=== PATIENT | male | born 1975 | race Caucasian/White ===

== ENCOUNTER 2019-09-28 10:33 | Inpatient (IN) | payer BC, OTHER, SELFPAY ==
[~2019-09-28] VITALS: Ht 167.6 cm; Wt 79.5 kg
[~2019-09-28 10:33] MED LIST: DEPA250T2 PO; INVE117I IM; INVE156I IM; INVE6TAB3 PO; KLON0.5T PO
[2019-09-28] MEDS ORDERED: LITH45TASA PO (10:44)
[2019-09-28] MEDS ORDERED: METO1TAB7 PO (10:44)
[2019-09-28] MEDS ORDERED: amLODIPine 10 MG TAB PO ONE (11:15)
[2019-09-28] MEDS ORDERED: METOPROLOL SUCC (TopROL XL) 50MG **XL** TAB PO ONE (11:15)
[2019-09-28 11:38] LABS: AMPHETAMINES LEVEL URINE NEGATIVE (NEGATIVE); BARBITURATES URINE NEGATIVE (NEGATIVE); BENZODIAZEPINES URINE NEGATIVE (NEGATIVE); CANNABINOIDS URINE NEGATIVE (NEGATIVE); COCAINE METABOLITE URINE NEGATIVE (NEGATIVE); METHADONE URINE NEGATIVE (NEGATIVE); OPIATES URINE NEGATIVE (NEGATIVE); PHENCYCLIDINE URINE NEGATIVE (NEGATIVE)
[2019-09-28 11:51] LABS: ALBUMIN 3.9 GM/DL (3.2-5.2); ALT/SGPT 112 U/L (12-78); BILIRUBIN,DIRECT 0.1 MG/DL (0.0-0.2); BILIRUBIN,TOTAL 0.5 MG/DL (0.2-1.0); BLOOD UREA NITROGEN 6 MG/DL (7-18); CALCIUM LEVEL 8.9 MG/DL (8.5-10.1); CARBON DIOXIDE LEVEL 19 MEQ/L (21-32); CHLORIDE LEVEL 107 MEQ/L (98-107); CREATININE FOR GFR 0.99 MG/DL (0.70-1.30); GLOMERULAR FILTRATION RATE > 60.0 (>60); GLUCOSE, FASTING 132 MG/DL (70-100); POTASSIUM SERUM 3.6 MEQ/L (3.5-5.1); SALICYLATE LEVEL < 1.7 MG/DL (5.0-30.0); SODIUM LEVEL 138 MEQ/L (136-145); TOTAL PROTEIN 7.3 GM/DL (6.4-8.2); VALPROIC ACID (DEPAKOTE) < 3.0 UG/ML (50.0-100.0)
[2019-09-28 11:52] LABS: ACETAMINOPHEN LEVEL < 2.0 UG/ML (10.0-30.0)
[2019-09-28 12:00] LABS: HEMOGLOBIN 15.4 g/dl (13.5-17.5); MEAN CORPUSCULAR HEMOGLOBIN 33.6 pg (27.0-33.0); MEAN CORPUSCULAR VOLUME 96.1 fl (80.0-96.0); PLATELET COUNT, AUTOMATED 264 10^3/uL (150-450); RED BLOOD COUNT 4.58 10^6/uL (4.30-6.10); WHITE BLOOD COUNT 11.2 10^3/uL (4.0-10.0)
[2019-09-28] MEDS: LITHIUM CARBONATE 450 MG **CR** TAB PO SCH (21:00)
[2019-09-28] MEDS: ZIPRASIDONE 20MG CAPSULE (GEODON) PO SCH (21:00)
[2019-09-28] MEDS: THIAMINE 100 MG TAB PO SCH (21:00)
[2019-09-28] MEDS ORDERED: ACET500T15 PO (22:36)
[2019-09-28] MEDS ORDERED: ASPI1TAB22 PO (22:36)
[2019-09-28] MEDS ORDERED: AMLO10TA5 PO (22:36)
[2019-09-28] MEDS ORDERED: ZIPR40CA11 PO (22:36)
[2019-09-28] MEDS ORDERED: ACETAMINOPHEN 500 MG TAB PO ONE (22:45)
[2019-09-28] MEDS ORDERED: LORazepam 2 MG TAB PO PRN (23:00)
[2019-09-28] MEDS ORDERED: MOM 30ML SUSPENSION UDC PO PRN (23:00)
[2019-09-28] MEDS ORDERED: MAALOX 30 ML SUSP *UDC PO PRN (23:00)
[2019-09-28] MEDS ORDERED: ACETAMINOPHEN TAB 650MG DOSE (2X325MG) PO PRN (23:00)
[2019-09-28] MEDS ORDERED: OLANZapine ORAL DISINTEGRATING TAB 5MG PO PRN (23:00)
[2019-09-29 00:06] VITALS: BP 156/106
[2019-09-29 00:07] VITALS: BP 156/106
[2019-09-29 06:14] VITALS: BP 138/96
[2019-09-29 06:58] VITALS: BP 138/96
[2019-09-29] MEDS: FOLIC ACID 1 MG TAB PO SCH (09:08)
[2019-09-29] MEDS: MULTIVITAMINS/MINERALS THERAP 1 TAB PO SCH (09:08)
[2019-09-29] MEDS: THIAMINE 100 MG TAB PO SCH ×2 (09:08→20:09)
[2019-09-29] MEDS: METOPROLOL SUCC (TopROL XL) 50MG **XL** TAB PO SCH (09:08)
[2019-09-29] MEDS: amLODIPine 10 MG TAB PO SCH (09:09)
[2019-09-29] MEDS: ZIPRASIDONE 20MG CAPSULE (GEODON) PO SCH ×2 (09:09→20:09)
[2019-09-29] MEDS: LITHIUM CARBONATE 450 MG **CR** TAB PO SCH ×2 (09:09→20:09)
--- NOTE | 2019-09-29 09:15 | MHHPEPDOC ---
[facility] History & Physical History and Physical DATE OF ADMISSION: September 28, 2019 at 22:54 New Patient Benji Enriquez MRN: N/A Date of : N/A Date of Service: 09/29/2019 Chief Complaint "I started drinking" History of Present Illness The patient is a 44-year-old man with a history of bipolar presents after becoming extraordinarily drunk with a blood alcohol of 0.3. The patient had reported become quite intoxicated making suicidal or homicidal statements. He reports having history of bipolar disorder and had some impulsivity he had noticed prior to him trying to drink. He reported that he had stopped drinking for quite some time roughly 3 weeks and had relapse in alcohol prior to coming in. When he was met with, reported that he was having withdrawal symptoms but was feeling better mentally and was not feeling suicidal or homicidal. He was last admitted in 2016 and reports that he had been admitted only once in the interim. Review Of Systems Depression: The patient denies any episodes of unprovoked depressed mood outside of substance use Anxiety: No significant anxiety endorsed Brandi: Qualifies for manic episodes in the past outside of substance use. Psychotic: The patient denies any experiences of auditory or visual hallucinations at this time. Trauma: None reported at this time Borderline: Not screened due to age Past Psychiatric History Has history of bipolar disorder currently treated with a combination of Ziprasidone and Geodon for the last several years. He was last admitted in the interim several years ago denies any history of suicide attempts. Allergies Please see below. Family Psychiatric History Reports a family history of mental health problems including bipolar alcoholism and a number of others but no history of suicide. Social History The patient currently lives with girlfriend and reports some difficulties second ramiro to it. He graduated with a GED. He reports no significant legal troubles at this time. Denies history of trauma or abuse. Grew up in the local area. Substance Abuse History Has a history of excessive alcohol use. Been sober for 3 months. Has rehabed stints in the past. Denies any other use of substances in the current interim. Medical History Has a history of hypertensive disorder Mental Status Examination General: Well dressed with good hygiene Speech: Spontaneous and fluid Thought processes: Linear and logical MSK: Smooth and coordinated gait, no signs of tremors or involuntary orofacial movements Thought content: Future orientated Abstract reasoning, and computation: Intact Description of associations: Intact Description of abnormal or psychotic thoughts: Denies any suicidal or homicidal ideation. Denies any auditory or visual hallucinations. Does not appear to be responding to internal stimuli. Does not appear to be endorsing any bizarre or paranoid ideation. Judgment: fair Insight: fair Orientation: Alert and orientated 3 Cognition: Grossly normal Recent and remote memory: Intact Attention span and concentration: Intact Fund of knowledge: Adequate Mood: "okay" Affect: Euthymic with a full range Diagnoses Bipolar disorder, last episode depressed, in remission of unspecified degree Alcohol use disorder, severe Assessment and Plan Bipolar disorder: Continue patients ziprasidone and lithium Alcohol use disorder, CIWA will likely arrange for addiction and potentially na ltrexone Disposition The patient will need further assessment and interview as well as monitoring to determine that it is alcohol that is salient play rather than bipolar disorder as he does have confirmed bipolar disorder Problem List 1. Risk for suicide 2. Substance use Initial Treatment Plan 1. Patient was admitted on a 9.39 legal status. 2. Complete history was obtained. 3. With patients permission, family will be contacted and database will be expanded. 4. Patients medication regimen will be reviewed and changed accordingly. 5. Patient will be provided with protected environment. 6. Patient will be treated with individual, group, and milieu therapies. 7. Patient will receive supportive psych-education. 8. Discharge planning will commence immediately. 9. Outpatient follow-up treatment will be strongly recommended. 10. The initial treatment plan will focus initially on: Estimated Length Of Stay 3 days. Time Spent 70 minutes with greater than 50% of time spent on counseling/coordination of care Friday Vital Signs Vital Signs Date Time Temp Pulse Resp B/P (MAP) Pulse Ox O2 Delivery O2 Flow Rate FiO2 09/29/19 09:09 88 138/96 09/29/19 06:58 98.8 12 Room Air 09/29/19 00:06 97 Laboratory Data 24H Labs Laboratory Tests 2 09/28/19 10:50: Nucleated Red Blood Cells % (auto) 0.0, Anion Gap 12, Glomerular Filtration Rate > 60.0, Calcium Level 8.9, Total Bilirubin 0.5, Direct Bilirubin 0.1, Aspartate Amino Transf (AST/SGOT) 67H, Alanine Aminotransferase (ALT/SGPT) 112H, Alkaline Phosphatase 77, Total Protein 7.3, Albumin 3.9, Albumin/Globulin Ratio 1.15, Thyroid Stimulating Hormone (TSH) 1.210, Salicylates Level < 1.7L, Urine Opiates Screen NEGATIVE, Urine Methadone Screen NEGATIVE, Acetaminophen Level < 2.0L, Urine Barbiturates Screen NEGATIVE, Valproic Acid (Depakene) Level < 3.0L, Urine Phencyclidine Screen NEGATIVE, Urine Amphetamines Screen NEGATIVE, Urine Benzodiazepines Screen NEGATIVE, [place] Level 0.60, Urine Cocaine Metabolite Screen NEGATIVE, Urine Cannabinoids Screen NEGATIVE, Ethyl Alcohol Level 0.300H CBC/BMP Laboratory Tests 09/28/19 10:50 Medications Scheduled Amlodipine Besylate (Amlodipine Besylate) 10 Mg Tablet, 10 MG PO DAILY, (Reported) [place] Carbonate ([place] Carbonate ER) 450 Mg Tablet.er, 450 MG PO BID, (Reported) Metoprolol Succinate (Metoprolol Succinate) 50 Mg Tab.er.24h, 50 MG PO DAILY, (Reported) Ziprasidone HCl (Ziprasidone HCl) 40 Mg Capsule, 40 MG PO BID, (Reported) Scheduled PRN Acetaminophen (Acetaminophen) 500 Mg Tablet, 500 MG PO Q6H PRN for PAIN, (Reported) Aspirin (Aspirin) 325 Mg Tablet, 325 MG PO Q6H PRN for PAIN, (Reported) Allergies Coded Allergies: No Known Allergies (Unverified , 07/12/15) JORGE HOLDEN DO September 29, 2019 09:15
[2019-09-29 15:52] VITALS: BP 149/95
--- NOTE | 2019-09-29 17:12 | HPEPDOC ---
[facility] Medical History & Physical Date of Admission September 29, 2019 Date of Service: September 29, 2019 History and Physical CHIEF COMPLAINT: Admitted to inpatient mental health unit due to alcohol overdose and aggressive behavior HISTORY OF PRESENT ILLNESS: 44-year-old male with past medical history of alcohol abuse, schizophrenia and hypertension is admitted to inpatient mental health unit after drinking too much vodka and threatening his neighbor. The police brought him in, he feels well since then, without any complaints at this time. He denies any symptoms of alcohol withdrawal this time. Patient reports compliance with his outpatient medication. He denies any shortness of breath, chest pain, nausea, vomiting, abdominal pain, diarrhea or constipation at this time. 10 point review of system is negative except for above PAST MEDICAL HISTORY: 1. Alcohol abuse. 2. Schizophrenia. 3. Hypertension. PAST SURGICAL HISTORY: 1. None. SOCIAL HISTORY: Denies smoking cigarettes Smokes excessive alcohol. Denies drug use FAMILY HISTORY: Negative for heart disease or cancer ALLERGIES: Please see below. HOME MEDICATIONS: Please see below. PHYSICAL EXAMINATION: VITAL SIGNS: Please see below. GENERAL: No distress HEENT: Normocephalic, atraumatic, moist mucous membranes NECK: Supple CARDIOVASCULAR EXAMINATION: S1, S2, no murmurs RESPIRATORY EXAMINATION: Clear to auscultation, no wheezing ABDOMINAL EXAMINATION: Soft, nontender, nondistended, positive bowel sounds EXTREMITIES: Range of motion intact SKIN: No rash NEUROLOGICAL EXAMINATION: Alert and oriented 3, no focal deficits PSYCHIATRIC EXAMINATION: Calm and cooperative LABORATORY DATA: See below. MICROBIOLOGY: Please see below. ASSESSMENT: 44-year-old male with past medical history of schizophrenia, alcohol abuse and hypertension is admitted to inpatient mental health unit for alcohol intoxication and aggressive behavior. PLAN: 1. Schizophrenia/aggressive behavior/alcohol intoxication. Management as per primary team, no signs of alcohol withdrawal at this time, alcohol level severely elevated at the time of presentation, monitor for withdrawal symptoms over the next 24-72 hours and treat accordingly. 2. Hypertension. Continue metoprolol and Norvasc Vital Signs Vital Signs Date Time Temp Pulse Resp B/P (MAP) Pulse Ox O2 Delivery O2 Flow Rate FiO2 09/29/19 15:52 98.0 80 18 149/95 (113) 09/29/19 06:58 Room Air 09/29/19 00:06 97 Home Medications Scheduled Amlodipine Besylate (Amlodipine Besylate) 10 Mg Tablet, 10 MG PO DAILY [place] Carbonate ([place] Carbonate ER) 450 Mg Tablet.er, 450 MG PO BID Metoprolol Succinate (Metoprolol Succinate) 50 Mg Tab.er.24h, 50 MG PO DAILY Ziprasidone HCl (Ziprasidone HCl) 40 Mg Capsule, 40 MG PO BID Scheduled PRN Acetaminophen (Acetaminophen) 500 Mg Tablet, 500 MG PO Q6H PRN for PAIN Aspirin (Aspirin) 325 Mg Tablet, 325 MG PO Q6H PRN for PAIN Allergies Coded Allergies: No Known Allergies (Unverified , 07/12/15) A-FIB/CHADSVASC A-FIB History Current/History of A-Fib/PAF?: No JEM MATHEW MD September 29, 2019 17:12
[2019-09-29] MEDS: traZODone 50 MG TAB PO PRN (20:09)
[2019-09-29 21:22] VITALS: BP 159/91
[2019-09-30 06:17] VITALS: BP 149/90
[2019-09-30] MEDS: MULTIVITAMINS/MINERALS THERAP 1 TAB PO SCH (08:49)
[2019-09-30] MEDS: LITHIUM CARBONATE 450 MG **CR** TAB PO SCH ×2 (08:49→20:06)
[2019-09-30] MEDS: ZIPRASIDONE 20MG CAPSULE (GEODON) PO SCH ×2 (08:49→20:06)
[2019-09-30] MEDS: FOLIC ACID 1 MG TAB PO SCH (08:49)
[2019-09-30] MEDS: METOPROLOL SUCC (TopROL XL) 50MG **XL** TAB PO SCH (08:49)
[2019-09-30] MEDS: THIAMINE 100 MG TAB PO SCH ×2 (08:49→20:06)
[2019-09-30] MEDS: amLODIPine 10 MG TAB PO SCH (08:49)
--- NOTE | 2019-09-30 09:34 | MHIPNPDOC ---
[facility] Progress Note Progress Note Inpatient Progress Note Benji Enriquez MRN: N/A Date of : N/A Date of Service: 09/30/2019 History of Present Illness The patient is a 44-year-old man with a history of bipolar presents after becoming extraordinarily drunk with a blood alcohol of 0.3. The patient had reported become quite intoxicated making suicidal or homicidal statements. He reports having history of bipolar disorder and had some impulsivity he had noticed prior to him trying to drink. He reported that he had stopped drinking for quite some time roughly 3 weeks and had relapse in alcohol prior to coming in. When he was met with, reported that he was having withdrawal symptoms but was feeling better mentally and was not feeling suicidal or homicidal. He was last admitted in 2016 and reports that he had been admitted only once in the interim. Interval History The patient is seen today. He reports he is doing much better and he feels much improved, and his CIWA scores have consistently been roughly 1-2. He reports he is feeling much improved and is interested in going. He has had no behavioral problems overnight and has been compliant with treatment from staff. Review Of Systems General: Denies fever or appetite changes Cardiovascular: Denies Chest pain or palpations GI: Denies Nausea, vomiting, or bowel changes Respiratory: Denies shortness of breath or cough Neuro: Denies dizziness, tremors Derm: Denies any rashes or pruritus : Denies any dysuria or urinary problems MSK: Denies any muscle tightness or stiffness HEENT: Denies any vision changes or headaches Psychotherapy None on this visit. Vital Signs Reviewed. Mental Status Examination General: Well dressed with good hygiene Speech: Spontaneous and fluid Thought processes: Linear and logical MSK: Smooth and coordinated gait, no signs of tremors or involuntary orofacial movements Thought content: Future orientated Abstract reasoning, and computation: Intact Description of associations: Intact Description of abnormal or psychotic thoughts: Denies any suicidal or homicidal ideation. Denies any auditory or visual hallucinations. Does not appear to be responding to internal stimuli. Does not appear to be endorsing any bizarre or paranoid ideation. Judgment: fair Insight: fair Orientation: Alert and orientated 3 Cognition: Grossly normal Recent and remote memory: Intact Attention span and concentration: Intact Fund of knowledge: Adequate Mood: "okay" Affect: Euthymic with a full range Diagnoses Bipolar disorder, last episode depressed, in remission of unspecified degree Alcohol use disorder, severe Assessment and Plan Bipolar disorder: Continue patients ziprasidone and lithium Alcohol use disorder, CIWA will likely arrange for addiction and potentially naltrexone Disposition Discharge tomorrow if patient continues to be stable for triage into addiction ideally. Time Spent 15 minutes. Vital Signs Vital Signs Date Time Temp Pulse Resp B/P (MAP) Pulse Ox O2 Delivery O2 Flow Rate FiO2 09/30/19 06:17 98.0 87 14 149/90 (109) Room Air 09/29/19 00:06 97 Current Medications Current Medications Medications (Trade) Dose Ordered Sig/Tony Route PRN Reason Start Time Stop Time Status Last Admin Dose Admin Acetaminophen (Tylenol Tab) 650 mg Q6HP PRN PO HEADACHE or DISCOMFORT 09/28/19 23:00 Al Hydrox/Mg Hydrox/Simethicone (Mylanta) 30 ml Q4HP PRN PO HEARTBURN/INDIGESTION 09/28/19 23:00 Amlodipine Besylate (Norvasc) 10 mg DAILY PO 09/29/19 09:00 09/30/19 08:49 Folic Acid (Folic Acid) 1 mg DAILY PO 09/29/19 09:00 09/30/19 08:49 Home Med (Med Rec Complete!) ASDIRECTED XX 09/28/19 22:45 09/28/19 22:38 DC [place] Carbonate (Eskalith-Cr) 450 mg BID PO 09/28/19 21:00 09/30/19 08:49 Lorazepam (Ativan) 2 mg ASDIRECTED PRN PO SEE PROTOCOL 09/28/19 23:00 Magnesium Hydroxide (Milk Of Magnesia) 30 ml DAILYPRN PRN PO CONSTIPATION 09/28/19 23:00 Metoprolol Succinate (TopROL XL) 50 mg DAILY PO 09/29/19 09:00 09/30/19 08:49 Multivitamins (Theragram-M) 1 tab DAILY PO 09/29/19 09:00 09/30/19 08:49 Olanzapine (ZyPREXA ZYDIS) 5 mg Q4HP PRN PO AGITATION 09/28/19 23:00 Thiamine HCl (Thiamine HCl) 100 mg BID PO 09/28/19 21:00 10/01/19 09:01 09/30/19 08:49 Trazodone HCl (Desyrel) 50 mg QHSP PRN PO INSOMNIA 09/28/19 23:00 09/29/19 20:09 Ziprasidone (Geodon) 40 mg BID PO 09/28/19 21:00 09/30/19 08:49 Allergies Coded Allergies: No Known Allergies (Unverified , 07/12/15) JORGE HOLDEN DO September 30, 2019 09:34
--- NOTE | 2019-09-30 09:34 | MHDSPDOC ---
[facility] Discharge Summary Discharge Summary DATE OF ADMISSION: September 28, 2019 at 22:54 DATE OF DISCHARGE: DISCHARGE DIAGNOSES: 1. . 2. . REASON FOR ADMISSION: CONSULTANTS INVOLVED: TREATMENT AND PROGRESS ON THE UNIT : . HOSPITAL COURSE: DISCHARGE ASSESSMENT: MENTAL STATUS EXAMINATION ON DISCHARGE: Patient is a -year old male, who is . Speech is . Language skills are . Thought processes including: . Thought content: . Abstract reasoning, and computation: . Description of associations: . Description of abnormal or psychotic thoughts: . Judgment: . Insight: . Orientation to . Recent and remote memory: . Attention span and concentration: . Language: . Fund of knowledge: . Mood: . Affect: . MEDICATIONS ON DISCHARGE: - for . - for . - for . PLAN/FOLLOWUP ARRANGEMENTS: . The amount of time spent in the coordination of care for this patient was approximately minutes. Vital Signs/I&Os Vital Signs Date Time Temp Pulse Resp B/P (MAP) Pulse Ox O2 Delivery O2 Flow Rate FiO2 09/30/19 06:17 98.0 87 14 149/90 (109) Room Air 09/29/19 00:06 97 Medications Scheduled Amlodipine Besylate (Amlodipine Besylate) 10 Mg Tablet, 10 MG PO DAILY, (Reported) [place] Carbonate ([place] Carbonate ER) 450 Mg Tablet.er, 450 MG PO BID, (Reported) Metoprolol Succinate (Metoprolol Succinate) 50 Mg Tab.er.24h, 50 MG PO DAILY, (Reported) Ziprasidone HCl (Ziprasidone HCl) 40 Mg Capsule, 40 MG PO BID, (Reported) Scheduled PRN Acetaminophen (Acetaminophen) 500 Mg Tablet, 500 MG PO Q6H PRN for PAIN, (Reported) Aspirin (Aspirin) 325 Mg Tablet, 325 MG PO Q6H PRN for PAIN, (Reported) Allergies Coded Allergies: No Known Allergies (Unverified , 07/12/15) JORGE HOLDEN DO September 30, 2019 09:34
[2019-09-30 11:59] VITALS: BP 149/90
[2019-09-30 15:45] VITALS: BP 137/83
[2019-09-30 16:07] VITALS: BP 156/91
[2019-09-30] MEDS: traZODone 50 MG TAB PO PRN (20:06)
[2019-10-01 06:09] VITALS: BP 135/80
[2019-10-01 06:10] VITALS: BP 135/80
[2019-10-01 08:17] VITALS: BP 124/77
[2019-10-01] MEDS: LITHIUM CARBONATE 450 MG **CR** TAB PO SCH (08:17)
[2019-10-01] MEDS: METOPROLOL SUCC (TopROL XL) 50MG **XL** TAB PO SCH (08:17)
[2019-10-01] MEDS: FOLIC ACID 1 MG TAB PO SCH (08:17)
[2019-10-01] MEDS: THIAMINE 100 MG TAB PO SCH (08:17)
[2019-10-01] MEDS: ZIPRASIDONE 20MG CAPSULE (GEODON) PO SCH (08:17)
[2019-10-01] MEDS: amLODIPine 10 MG TAB PO SCH (08:17)
[2019-10-01] MEDS: MULTIVITAMINS/MINERALS THERAP 1 TAB PO SCH (08:17)
--- NOTE | 2019-10-01 09:58 | MHDSPDOC ---
[facility] Discharge Summary Discharge Summary DATE OF ADMISSION: September 28, 2019 at 22:54 DATE OF DISCHARGE: 10/01/19 Discharge Benji Enriquez MRN: N/A Date of : N/A Date of Service: 10/01/2019 Diagnoses Bipolar disorder, last episode depressed, in remission of unspecified degree, Alcohol use disorder, severe. History of Present Illness The patient is a 44-year-old man with a history of bipolar presents after becoming extraordinarily drunk with a blood alcohol of 0.3. The patient had reported become quite intoxicated making suicidal or homicidal statements. He reports having history of bipolar disorder and had some impulsivity he had noticed prior to him trying to drink. He reported that he had stopped drinking for quite some time roughly 3 weeks and had relapse in alcohol prior to coming in. When he was met with, reported that he was having withdrawal symptoms but was feeling better mentally and was not feeling suicidal or homicidal. He was last admitted in 2016 and reports that he had been admitted only once in the interim. Consultants Involved Hospitalist/PCP screening Treatment and Progress On The Unit The patient was admitted to the inpatient mental health unit. He was treated with [facility] for his alcohol withdrawal, for which he required very few doses of Ativan. He was resumed on his home medications of ziprasidone and lithium with the lithium level in the normal range. He was observed and he appeared to resolve well without any major changes suggesting a substance-induced problem. He did well on the unit and had good insight and was cooperative for treatment. Eventually, he requested to leave and had not been suicidal or homicidal or having any behavioral problems and his request was honored. Discharge Assessment 44-year-old man with history of bipolar disorder likely presenting after becoming severely intoxicated. He is treated with his home medications and a supportive environment. The patient at the time of discharge did not meet criteria for involuntary admission/extension due to having a normal mental status exam, fair insight into the situation, They are engaged in the discharge process, as well as being friendly and amenable in behavioral control and havent been engaging in any observed concerning behavior or ideation recently. They decline voluntary extension/admission at this time and must be discharged in good ron, as Im unable to make a case for holding the patient against their will. They may have historical risk factors of admissions and other interactions with psychiatry however, those are not modifiable from a clinical perspective. The patient will need to be discharged in good ron. Mental Status Examination General: Well dressed with good hygiene Speech: Spontaneous and fluid Thought processes: Linear and logical MSK: Smooth and coordinated gait, no signs of tremors or involuntary orofacial movements Thought content: Future orientated Abstract reasoning, and computation: Intact Description of associations: Intact Description of abnormal or psychotic thoughts: Denies any suicidal or homicidal ideation. Denies any auditory or visual hallucinations. Does not appear to be responding to internal stimuli. Does not appear to be endorsing any bizarre or paranoid ideation. Judgment: fair Insight: fair Orientation: Alert and orientated 3 Cognition: Grossly normal Recent and remote memory: Intact Attention span and concentration: Intact Fund of knowledge: Adequate Mood: "okay" Affect: Euthymic with a full range Follow Up The social work team worked during the predischarge meeting in order to evaluate for further issues of lethality address them fully before discharge. They worked on safety planning with the patient's family members in order to ensure that the patient will have a safe and effective discharge. Time Spent The amount of time spent in the coordination of care for this patient was approximately 45 minutes. Friday Vital Signs/I&Os Vital Signs Date Time Temp Pulse Resp B/P (MAP) Pulse Ox O2 Delivery O2 Flow Rate FiO2 10/01/19 08:17 75 10/01/19 08:17 124/77 10/01/19 06:10 98.4 14 99 Room Air Medications Scheduled Amlodipine Besylate (Amlodipine Besylate) 10 Mg Tablet, 10 MG PO DAILY, (Re ported) [place] Carbonate ([place] Carbonate ER) 450 Mg Tablet.er, 450 MG PO BID, (Reported) Metoprolol Succinate (Metoprolol Succinate) 50 Mg Tab.er.24h, 50 MG PO DAILY, (Reported) Nicotine Polacrilex (Nicotine Gum) 2 Mg Gum, 2 MG MT Q2H for tobacco for 30 Days, #30 Ziprasidone HCl (Ziprasidone HCl) 40 Mg Capsule, 40 MG PO BID, (Reported) Scheduled PRN Acetaminophen (Acetaminophen) 500 Mg Tablet, 500 MG PO Q6H PRN for PAIN, (Reported) Aspirin (Aspirin) 325 Mg Tablet, 325 MG PO Q6H PRN for PAIN, (Reported) Allergies Coded Allergies: No Known Allergies (Unverified , 07/12/15) JORGE HOLDEN DO October 01, 2019 09:58
[2019-10-01] MEDS ORDERED: NICO2GUM MT (10:06)
== END 2019-10-01 12:00 | disposition home or self-care (01) | DRG 753 ==
LOC: M ED 10:33 → M ED INP 22:54 → M PSY 23:25
PROVIDERS: ADMIT Psychiatry & Neurology Addiction Medicine; ATTEND Psychiatry & Neurology Addiction Medicine
DX: F31.9 Bipolar disorder, unspecified (principal); I10 Essential (primary) hypertension; F10.10 Alcohol abuse, uncomplicated; Z79.899 Other long term (current) drug therapy; Z79.82 Long term (current) use of aspirin

== ENCOUNTER 2019-12-29 22:28 | Inpatient (IN) | payer OTHER ==
[~2019-12-29 22:28] MED LIST changes: +ACET500T15 PO; +AMLO1TAB25 PO; +ASPI1TAB22 PO; +LITH45TASA PO; +METO1TAB7 PO; +NICO2GUM MT; +ZIPR40CA11 PO
[2019-12-30] MEDS ORDERED: ZIPRASIDONE 20MG CAPSULE (GEODON) ONE ×2 (11:29→20:20)
[2019-12-30] MEDS ORDERED: ZIPRASIDONE 20MG CAPSULE (GEODON) As Ordered ONE (11:29)
[2019-12-30] MEDS ORDERED: amLODIPine 10 MG TAB ONE (11:29)
[2019-12-30] MEDS ORDERED: amLODIPine 10 MG TAB As Ordered ONE (11:29)
[2019-12-30] MEDS ORDERED: LITHIUM CARBONATE 450 MG **CR** TAB ONE ×2 (20:20→23:30)
[2019-12-30] MEDS ORDERED: traZODone 50 MG TAB ONE (20:20)
[2019-12-30] MEDS ORDERED: METOPROLOL SUCC (TopROL XL) 50MG **XL** TAB ONE (23:30)
[2019-12-31] MEDS ORDERED: METOPROLOL SUCC (TopROL XL) 50MG **XL** TAB ONE (13:00)
[2019-12-31] MEDS ORDERED: ZIPRASIDONE 20MG CAPSULE (GEODON) As Ordered ONE (20:02)
[2019-12-31] MEDS ORDERED: traZODone 50 MG TAB ONE (20:02)
[2019-12-31] MEDS ORDERED: ZIPRASIDONE 20MG CAPSULE (GEODON) ONE (20:02)
[2019-12-31] MEDS ORDERED: traZODone 50 MG TAB As Ordered ONE (20:02)
[2020-01-01] MEDS ORDERED: LITHIUM CARBONATE 450 MG **CR** TAB ONE (07:45)
[2020-01-01] MEDS ORDERED: amLODIPine 10 MG TAB ONE (07:45)
[2020-01-01] MEDS ORDERED: amLODIPine 10 MG TAB As Ordered ONE (07:45)
[2020-01-01] MEDS ORDERED: LITHIUM CARBONATE 450 MG **CR** TAB As Ordered ONE (07:45)
[2020-01-01] MEDS ORDERED: ZIPRASIDONE 20MG CAPSULE (GEODON) ONE ×2 (07:45→20:14)
[2020-01-01] MEDS ORDERED: METOPROLOL TART 25 MG TABLET As Ordered ONE (07:46)
[2020-01-01] MEDS ORDERED: ZIPRASIDONE 20MG CAPSULE (GEODON) As Ordered ONE ×2 (07:46→20:14)
[2020-01-01] MEDS ORDERED: traZODone 50 MG TAB ONE (20:14)
[2020-01-01] MEDS ORDERED: traZODone 50 MG TAB As Ordered ONE (20:14)
[2020-01-02] MEDS ORDERED: ZIPRASIDONE 20MG CAPSULE (GEODON) ONE ×2 (07:30→20:08)
[2020-01-02] MEDS ORDERED: amLODIPine 10 MG TAB As Ordered ONE (07:30)
[2020-01-02] MEDS ORDERED: LITHIUM CARBONATE 450 MG **CR** TAB ONE (07:30)
[2020-01-02] MEDS ORDERED: amLODIPine 10 MG TAB ONE (07:30)
[2020-01-02] MEDS ORDERED: ZIPRASIDONE 20MG CAPSULE (GEODON) As Ordered ONE (07:31)
[2020-01-02] MEDS ORDERED: LITHIUM CARBONATE 450 MG **CR** TAB As Ordered ONE (07:31)
[2020-01-02] MEDS ORDERED: ACETAMINOPHEN TAB 650MG DOSE (2X325MG) ONE (20:08)
[2020-01-02] MEDS ORDERED: traZODone 50 MG TAB ONE (20:08)
[2020-01-03] MEDS ORDERED: METOPROLOL TART 25 MG TABLET ONE (09:47)
[2020-01-03] MEDS ORDERED: ZIPRASIDONE 20MG CAPSULE (GEODON) ONE (09:47)
[2020-01-03] MEDS ORDERED: amLODIPine 10 MG TAB ONE (09:47)
[2020-01-03] MEDS ORDERED: amLODIPine 10 MG TAB As Ordered ONE (09:47)
[2020-01-03] MEDS ORDERED: LITHIUM CARBONATE 150 MG CAP ONE (09:47)
[2020-01-03] MEDS ORDERED: ZIPRASIDONE 20MG CAPSULE (GEODON) As Ordered ONE (09:48)
[2020-01-03] MEDS ORDERED: LITHIUM CARBONATE 150 MG CAP As Ordered ONE (09:48)
[2020-01-03] MEDS ORDERED: METOPROLOL TART 25 MG TABLET As Ordered ONE (09:48)
[2020-02-17 03:34] LABS: HEMATOCRIT 43.6 % (42.0-52.0); HEMOGLOBIN 15.5 g/dl (13.5-17.5); MEAN CORPUSCULAR HEMOGLOBIN 33.2 pg (27.0-33.0); MEAN CORPUSCULAR HGB CONC 35.6 g/dl (32.0-36.5); MEAN CORPUSCULAR VOLUME 93.4 fl (80.0-96.0); PLATELET COUNT, AUTOMATED 237 10^3/uL (150-450); RED BLOOD COUNT 4.67 10^6/uL (4.30-6.10); WHITE BLOOD COUNT 8.4 10^3/uL (4.0-10.0)
[2020-03-20 17:32] LABS: ACETAMINOPHEN LEVEL < 2.0 UG/ML (10.0-30.0); ALBUMIN 4.2 GM/DL (3.2-5.2); ALT/SGPT 24 U/L (12-78); BILIRUBIN,DIRECT 0.1 MG/DL (0.0-0.2); BILIRUBIN,TOTAL 0.5 MG/DL (0.2-1.0); BLOOD UREA NITROGEN 5 MG/DL (7-18); CALCIUM LEVEL 8.9 MG/DL (8.5-10.1); CARBON DIOXIDE LEVEL 24 MEQ/L (21-32); CHLORIDE LEVEL 107 MEQ/L (98-107); ETHYL ALCOHOL (ETHANOL) 0.213 % (0.000-0.010); GLOMERULAR FILTRATION RATE > 60.0 (>60); GLUCOSE, FASTING 90 MG/DL (70-100); LITHIUM LEVEL < 0.20 MEQ/L (0.60-1.20); POTASSIUM SERUM 3.5 MEQ/L (3.5-5.1); SALICYLATE LEVEL < 1.7 MG/DL (5.0-30.0); SODIUM LEVEL 140 MEQ/L (136-145); TOTAL PROTEIN 7.4 GM/DL (6.4-8.2)
--- NOTE | 2020-03-23 20:56 | MHDSPDOC ---
[facility] Discharge Summary Discharge Summary DATE OF ADMISSION: Dec 31, 2019 at 00:00 DATE OF DISCHARGE: Jan 03, 2020 at 11:54 DISCHARGE DIAGNOSES: F10.94 Alcohol use, unspecified with alcohol-induced mood disorder F31.70 Bipolar disorder, currently in remission, most recent episode unspecified CONSULTANTS INVOLVED:[ None (basic hospitalist screening)] REASON FOR ADMISSION & TREATMENT AND PROGRESS ON THE UNIT : The patient was admitted to the inpatient health unit after becoming quite intoxicated, his mother had had a restraining order on him and thus he could not return. He stabilized quite well without any major issues and did not have any signs of bipolar linden or other bipolar depression but simply substance-induced depression that resolved well. He returned to a fairly amenable state quite quickly. He was treated with alcohol withdrawal protocol without incident. His behavior was stable and pleasant during his stay. DISCHARGE ASSESSMENT[improved] Legal status considerations: The patient at the time of discharge did not meet criteria for involuntary admission/extension due to having a [normal] mental status exam, [fair] insight into the situation, They are engaged in the discharge process, as well as being friendly and amenable in behavioral control and havent been engaging in any observed concerning behavior or ideation recently. They decline voluntary extension/admission at this time and must be discharged in good ron, as Im unable to make a case for holding the patient against their will. They may have historical risk factors of admissions and other interactions with psychiatry however, those are not modifiable from a clinical perspective. The patient will need to be discharged in good ron. MENTAL STATUS EXAMINATION ON DISCHARGE: [General: Well dressed with good hygiene Speech: Spontaneous and fluid Thought processes: Linear and logical Thought content: Future orientated Abstract reasoning, and computation: Intact Description of associations: Intact Description of abnormal or psychotic thoughts:Denies any suicidal or homicidal ideation. Denies any auditory or visual hallucinations. Does not appear to be responding to internal stimuli. Does not appear to be endorsing any bizarre or paranoid ideation. Judgment: fair Insight: fair Orientation: Alert and orientated 3 Recent and remote memory: Intact Attention span and concentration: Intact Fund of knowledge: Adequate Mood: "okay" Affect: Euthymic with a full range] PLAN/FOLLOWUP ARRANGEMENTS: Follow up appointments made (PCP and MH in 5 days of D/C date) and safety plan completed. Safety Planning aspects completed prior to discharge Offered addiction medications, however patient declined after discussion [RN reviewed crisis hotline information and other aspects to empower patient to access care in interim before next appointment.] The amount of time spent in the coordination of care for this patient was approximately 30 minutes. Medications Scheduled Amlodipine Besylate (Amlodipine Besylate) 10 Mg Tablet, 10 MG PO DAILY, (Reported) [place] Carbonate ([place] Carbonate ER) 450 Mg Tablet.er, 450 MG PO BID, (Reported) Metoprolol Succinate (Metoprolol Succinate) 50 Mg Tab.er.24h, 50 MG PO DAILY, (Reported) Nicotine Polacrilex (Nicotine Gum) 2 Mg Gum, 2 MG MT Q2H for tobacco for 30 Days, #30 Ziprasidone HCl (Ziprasidone HCl) 40 Mg Capsule, 40 MG PO BID, (Reported) Scheduled PRN Acetaminophen (Acetaminophen) 500 Mg Tablet, 500 MG PO Q6H PRN for PAIN, (Reported) Aspirin (Aspirin) 325 Mg Tablet, 325 MG PO Q6H PRN for PAIN, (Reported) Allergies Coded Allergies: No Known Allergies (Unverified , 07/12/15) JORGE HOLDEN DO Mar 23, 2020 20:56
== END 2020-01-03 11:54 | disposition home or self-care (01) | DRG 775 ==
LOC: M ED 22:28 → M PSY 12-31
PROVIDERS: ADMIT Psychiatry & Neurology Addiction Medicine; ATTEND Psychiatry & Neurology Addiction Medicine
DX: F10.94 Alcohol use, unspecified with alcohol-induced mood disorder (principal); F31.70 Bipolar disorder, currently in remission, most recent episode unspecified; Z79.899 Other long term (current) drug therapy; Z79.82 Long term (current) use of aspirin

== ENCOUNTER 2022-03-04 19:06 | Inpatient (IN) | payer OTHER ==
[~2022-03-04] VITALS: Ht 170.2 cm; Wt 87.9 kg
[2022-03-04] MEDS ORDERED: ATOR1TAB21 PO (20:49)
[2022-03-04] MEDS ORDERED: D 50CAP2 PO (20:49)
[2022-03-04] MEDS ORDERED: METF-838 PO (20:49)
[2022-03-04] MEDS ORDERED: SYNT50TA PO (20:49)
[2022-03-04] MEDS ORDERED: ZYPR10TA PO (20:49)
[2022-03-04 20:50] LABS: RSV AMPLIFICATION NEGATIVE (NEGATIVE)
[2022-03-04] MEDS ORDERED: HOME MED LIST COMPLETE! XX SCH (20:50)
[2022-03-04 20:58] LABS: HEMATOCRIT 42.3 % (42.0-52.0); HEMOGLOBIN 15.7 g/dl (13.5-17.5); MEAN CORPUSCULAR HEMOGLOBIN 32.2 pg (27.0-33.0); MEAN CORPUSCULAR HGB CONC 37.1 g/dl (32.0-36.5); MEAN CORPUSCULAR VOLUME 86.7 fl (80.0-96.0); PLATELET COUNT, AUTOMATED 260 10^3/uL (150-450); RED BLOOD COUNT 4.88 10^6/uL (4.30-6.10); WHITE BLOOD COUNT 13.1 10^3/uL (4.0-10.0)
[2022-03-04 21:01] LABS: ACETAMINOPHEN LEVEL < 2.0 UG/ML (10.0-30.0); ALBUMIN 4.2 GM/DL (3.2-5.2); ALT/SGPT 56 U/L (12-78); BILIRUBIN,DIRECT 0.3 MG/DL (0.0-0.2); BILIRUBIN,TOTAL 1.3 MG/DL (0.2-1.0); BLOOD UREA NITROGEN 8 MG/DL (7-18); CALCIUM LEVEL 9.6 MG/DL (8.5-10.1); CARBON DIOXIDE LEVEL 24 MEQ/L (21-32); CHLORIDE LEVEL 98 MEQ/L (98-107); CREATININE FOR GFR 0.78 MG/DL (0.70-1.30); ETHYL ALCOHOL (ETHANOL) < 0.003 % (0.000-0.010); GLOMERULAR FILTRATION RATE > 60.0 (>60); GLUCOSE, FASTING 119 MG/DL (70-100); POTASSIUM SERUM 3.6 MEQ/L (3.5-5.1); SALICYLATE LEVEL < 1.7 MG/DL (5.0-30.0); SODIUM LEVEL 130 MEQ/L (136-145); TOTAL PROTEIN 7.4 GM/DL (6.4-8.2)
[2022-03-04 23:40] LABS: AMPHETAMINES LEVEL URINE NEGATIVE (NEGATIVE); BARBITURATES URINE NEGATIVE (NEGATIVE); BENZODIAZEPINES URINE NEGATIVE (NEGATIVE); CANNABINOIDS URINE NEGATIVE (NEGATIVE); COCAINE METABOLITE URINE NEGATIVE (NEGATIVE); METHADONE URINE NEGATIVE (NEGATIVE); OPIATES URINE NEGATIVE (NEGATIVE); PHENCYCLIDINE URINE NEGATIVE (NEGATIVE)
[2022-03-05] MEDS ORDERED: MOM 30ML SUSPENSION UDC PO PRN (21:40)
[2022-03-05] MEDS ORDERED: MAALOX 30 ML SUSP *UDC PO PRN (21:40)
[2022-03-05 23:18] VITALS: BP 136/84
[2022-03-05] MEDS: traZODone 50 MG TAB PO PRN (23:52)
[2022-03-05] MEDS: OLANZapine ORAL DISINTEGRATING TAB 5MG PO PRN (23:52)
[2022-03-06] MEDS: LEVOTHYROXINE 50MCG TABLET (0.05MG) PO SCH (06:00)
[2022-03-06 06:23] VITALS: BP 140/90
[2022-03-06] MEDS: METOPROLOL SUCC (TopROL XL) 50MG **XL** TAB PO SCH (09:00)
[2022-03-06] MEDS: VITAMIN D 1,000 INTERNATIONAL UNITS TABLET PO SCH (09:00)
[2022-03-06] MEDS ORDERED: THIAMINE 100 MG TAB PO SCH (09:00)
[2022-03-06] MEDS: MULTIVITAMINS/MINERALS THERAP 1 TAB PO SCH (09:00)
[2022-03-06] MEDS: NICOTINE 21MG/24HR 1 EA TRANSDERMAL TD SCH (09:00)
[2022-03-06] MEDS: FOLIC ACID 1MG TAB PO SCH (09:00)
[2022-03-06 10:01] LABS: ALBUMIN 3.9 GM/DL (3.2-5.2); ALT/SGPT 44 U/L (12-78); BILIRUBIN,TOTAL 0.5 MG/DL (0.2-1.0); BLOOD UREA NITROGEN 10 MG/DL (7-18); CALCIUM LEVEL 9.2 MG/DL (8.5-10.1); CARBON DIOXIDE LEVEL 21 MEQ/L (21-32); CHLORIDE LEVEL 105 MEQ/L (98-107); GLOMERULAR FILTRATION RATE > 60.0 (>60); GLUCOSE, FASTING 209 MG/DL (70-100); SODIUM LEVEL 136 MEQ/L (136-145); TOTAL PROTEIN 6.9 GM/DL (6.4-8.2)
[2022-03-06] MEDS ORDERED: LORazepam 2 MG TAB PO PRN (11:30)
[2022-03-06 12:39] VITALS: BP 130/72
[2022-03-06] MEDS ORDERED: OLANZapine ORAL DISINTEGRATING TAB 5MG PO ONE (12:45)
[2022-03-06] MEDS ORDERED: LITHIUM CARBONATE 300 MG CAP PO ONE (15:50)
[2022-03-06 16:16] VITALS: BP 147/80
[2022-03-06] MEDS ORDERED: OLANZapine 5 MG TAB PO SCH (21:00)
[2022-03-06] MEDS: OLANZapine 10 MG TAB PO SCH (22:35)
[2022-03-06] MEDS: traZODone 50 MG TAB PO PRN (22:35)
[2022-03-06] MEDS: metFORMIN XR 500MG TAB *GLUCOPHAGE XR PO SCH (22:36)
[2022-03-06] MEDS: ATORVASTATIN 20 MG TAB PO SCH (22:36)
[2022-03-06] MEDS: THIAMINE 200MG 2ML VIAL IM SCH (22:37)
[2022-03-06] MEDS: LITHIUM CARBONATE 300 MG CAP PO SCH (22:37)
[2022-03-06 23:23] VITALS: BP 136/76
[2022-03-07] MEDS: LEVOTHYROXINE 50MCG TABLET (0.05MG) PO SCH (05:45)
[2022-03-07 08:05] LABS: CHOLESTEROL RISK RATIO 2.732 (<5)
[2022-03-07] MEDS: NICOTINE 21MG/24HR 1 EA TRANSDERMAL TD SCH (09:00)
[2022-03-07] MEDS: metFORMIN XR 500MG TAB *GLUCOPHAGE XR PO SCH ×2 (09:42→21:00)
[2022-03-07] MEDS: VITAMIN D 1,000 INTERNATIONAL UNITS TABLET PO SCH (09:42)
[2022-03-07] MEDS: FOLIC ACID 1MG TAB PO SCH (09:42)
[2022-03-07] MEDS: MULTIVITAMINS/MINERALS THERAP 1 TAB PO SCH (09:42)
[2022-03-07] MEDS: LITHIUM CARBONATE 300 MG CAP PO SCH ×2 (09:42→21:00)
[2022-03-07] MEDS: METOPROLOL SUCC (TopROL XL) 50MG **XL** TAB PO SCH (09:42)
[2022-03-07] MEDS: OLANZapine ORAL DISINTEGRATING TAB 5MG PO PRN ×2 (12:16→16:45)
[2022-03-07] MEDS: ACETAMINOPHEN TAB 650MG DOSE (2X325MG) PO PRN (16:46)
[2022-03-07 18:09] VITALS: BP 142/76
[2022-03-07 18:31] VITALS: BP 156/82
[2022-03-07] MEDS: THIAMINE 200MG 2ML VIAL IM SCH (20:00)
[2022-03-07] MEDS: ATORVASTATIN 20 MG TAB PO SCH (21:00)
[2022-03-07] MEDS: OLANZapine 10 MG TAB PO SCH (21:00)
[2022-03-07 22:00] VITALS: BP 0/0
[2022-03-08] MEDS: LEVOTHYROXINE 50MCG TABLET (0.05MG) PO SCH (05:45)
[2022-03-08 05:59] VITALS: BP 152/91
[2022-03-08 08:45] VITALS: BP 143/81
[2022-03-08] MEDS: METOPROLOL SUCC (TopROL XL) 50MG **XL** TAB PO SCH (08:49)
[2022-03-08] MEDS: LITHIUM CARBONATE 300 MG CAP PO SCH ×2 (08:49→21:52)
[2022-03-08] MEDS: FOLIC ACID 1MG TAB PO SCH (08:49)
[2022-03-08] MEDS: MULTIVITAMINS/MINERALS THERAP 1 TAB PO SCH (08:49)
[2022-03-08] MEDS: VITAMIN D 1,000 INTERNATIONAL UNITS TABLET PO SCH (08:49)
[2022-03-08] MEDS: metFORMIN XR 500MG TAB *GLUCOPHAGE XR PO SCH ×2 (08:49→21:53)
[2022-03-08] MEDS: NICOTINE 21MG/24HR 1 EA TRANSDERMAL TD SCH (08:50)
[2022-03-08] MEDS: DIVALPROEX 250MG *ER* TAB PO SCH ×2 (12:21→21:53)
[2022-03-08 14:40] VITALS: BP 138/84
[2022-03-08 16:05] VITALS: BP 139/79
[2022-03-08] MEDS ORDERED: ARIPiprazole 10 MG TAB PO SCH (21:00)
[2022-03-08] MEDS: ATORVASTATIN 20 MG TAB PO SCH (21:52)
[2022-03-08] MEDS: THIAMINE 200MG 2ML VIAL IM SCH (21:54)
[2022-03-08 22:40] VITALS: BP_SYST 150; BP_DIAS 94; BP_DIAS 96
[2022-03-09] MEDS: LEVOTHYROXINE 50MCG TABLET (0.05MG) PO SCH (05:43)
[2022-03-09 06:11] VITALS: BP 124/88
[2022-03-09 06:32] VITALS: BP 124/88
[2022-03-09] MEDS: NICOTINE 21MG/24HR 1 EA TRANSDERMAL TD SCH (09:00)
[2022-03-09 09:15] VITALS: BP 138/86
[2022-03-09] MEDS: DIVALPROEX 250MG *ER* TAB PO SCH ×2 (09:16→20:57)
[2022-03-09] MEDS: VITAMIN D 1,000 INTERNATIONAL UNITS TABLET PO SCH (09:16)
[2022-03-09] MEDS: FOLIC ACID 1MG TAB PO SCH (09:16)
[2022-03-09] MEDS: LITHIUM CARBONATE 300 MG CAP PO SCH ×2 (09:16→20:57)
[2022-03-09] MEDS: METOPROLOL SUCC (TopROL XL) 50MG **XL** TAB PO SCH (09:16)
[2022-03-09] MEDS: metFORMIN XR 500MG TAB *GLUCOPHAGE XR PO SCH ×2 (09:17→20:57)
[2022-03-09] MEDS: MULTIVITAMINS/MINERALS THERAP 1 TAB PO SCH (09:17)
[2022-03-09 16:56] VITALS: BP 128/84
[2022-03-09] MEDS: ATORVASTATIN 20 MG TAB PO SCH (20:57)
[2022-03-09] MEDS: ARIPiprazole 15 MG TAB (AbiLIFY) PO SCH (20:57)
[2022-03-09] MEDS: THIAMINE 200MG 2ML VIAL IM SCH (21:01)
[2022-03-09] MEDS: ACETAMINOPHEN TAB 650MG DOSE (2X325MG) PO PRN (22:52)
[2022-03-10] MEDS: LEVOTHYROXINE 50MCG TABLET (0.05MG) PO SCH (06:05)
[2022-03-10 06:33] VITALS: BP 142/91
[2022-03-10 06:52] LABS: LITHIUM LEVEL 0.28 MEQ/L (0.60-1.20); VALPROIC ACID (DEPAKOTE) 31.2 UG/ML (50.0-100.0)
[2022-03-10] MEDS: NICOTINE 21MG/24HR 1 EA TRANSDERMAL TD SCH (09:00)
[2022-03-10] MEDS: metFORMIN XR 500MG TAB *GLUCOPHAGE XR PO SCH ×2 (09:00→21:19)
[2022-03-10] MEDS: FOLIC ACID 1MG TAB PO SCH (09:00)
[2022-03-10] MEDS: DIVALPROEX 250MG *ER* TAB PO SCH ×2 (09:00→21:20)
[2022-03-10] MEDS: MULTIVITAMINS/MINERALS THERAP 1 TAB PO SCH (09:00)
[2022-03-10] MEDS: VITAMIN D 1,000 INTERNATIONAL UNITS TABLET PO SCH (09:00)
[2022-03-10] MEDS: LITHIUM CARBONATE 300 MG CAP PO SCH (09:00)
[2022-03-10] MEDS: METOPROLOL SUCC (TopROL XL) 50MG **XL** TAB PO SCH (09:01)
[2022-03-10 16:06] VITALS: BP 121/79
[2022-03-10] MEDS: ARIPiprazole 15 MG TAB (AbiLIFY) PO SCH (21:19)
[2022-03-10] MEDS: traZODone 50 MG TAB PO PRN (21:19)
[2022-03-10] MEDS: LITHIUM CARBONATE 150 MG CAP PO SCH (21:20)
[2022-03-10] MEDS: ATORVASTATIN 20 MG TAB PO SCH (21:20)
[2022-03-11] MEDS: LEVOTHYROXINE 50MCG TABLET (0.05MG) PO SCH (06:03)
[2022-03-11 06:21] VITALS: BP 162/100
[2022-03-11 06:31] VITALS: BP 142/92
[2022-03-11] MEDS: NICOTINE 21MG/24HR 1 EA TRANSDERMAL TD SCH (09:00)
[2022-03-11] MEDS: DIVALPROEX 250MG *ER* TAB PO SCH ×2 (09:37→21:11)
[2022-03-11] MEDS: MULTIVITAMINS/MINERALS THERAP 1 TAB PO SCH (09:38)
[2022-03-11] MEDS: VITAMIN D 1,000 INTERNATIONAL UNITS TABLET PO SCH (09:38)
[2022-03-11] MEDS: metFORMIN XR 500MG TAB *GLUCOPHAGE XR PO SCH ×2 (09:38→21:10)
[2022-03-11] MEDS: METOPROLOL SUCC (TopROL XL) 50MG **XL** TAB PO SCH (09:38)
[2022-03-11] MEDS: FOLIC ACID 1MG TAB PO SCH (09:39)
[2022-03-11] MEDS: LITHIUM CARBONATE 150 MG CAP PO SCH ×2 (09:39→21:10)
[2022-03-11 18:04] VITALS: BP 138/73
[2022-03-11] MEDS: ARIPiprazole 15 MG TAB (AbiLIFY) PO SCH (21:10)
[2022-03-11] MEDS: ATORVASTATIN 20 MG TAB PO SCH (21:10)
[2022-03-11] MEDS: traZODone 50 MG TAB PO PRN (21:11)
[2022-03-12] MEDS: LEVOTHYROXINE 50MCG TABLET (0.05MG) PO SCH (05:42)
[2022-03-12 06:29] VITALS: BP 139/90
[2022-03-12] MEDS ORDERED: ARIPiprazole MONOHYDRATE 400 MG INJ (ABILIFY)(FREE PSY INPT ONLY) IM ONE (08:00)
[2022-03-12] MEDS: metFORMIN XR 500MG TAB *GLUCOPHAGE XR PO SCH ×2 (08:20→20:35)
[2022-03-12] MEDS: LITHIUM CARBONATE 150 MG CAP PO SCH ×2 (08:21→20:35)
[2022-03-12] MEDS: DIVALPROEX 250MG *ER* TAB PO SCH ×2 (08:21→20:35)
[2022-03-12] MEDS: VITAMIN D 1,000 INTERNATIONAL UNITS TABLET PO SCH (08:21)
[2022-03-12] MEDS: FOLIC ACID 1MG TAB PO SCH (08:21)
[2022-03-12] MEDS: MULTIVITAMINS/MINERALS THERAP 1 TAB PO SCH (08:21)
[2022-03-12] MEDS: METOPROLOL SUCC (TopROL XL) 50MG **XL** TAB PO SCH (08:24)
[2022-03-12] MEDS: NICOTINE 21MG/24HR 1 EA TRANSDERMAL TD SCH (08:30)
[2022-03-12 18:00] VITALS: BP 113/80
[2022-03-12] MEDS: ARIPiprazole 15 MG TAB (AbiLIFY) PO SCH (20:34)
[2022-03-12] MEDS: ATORVASTATIN 20 MG TAB PO SCH (20:34)
[2022-03-12] MEDS: traZODone 50 MG TAB PO PRN (20:35)
[2022-03-13] MEDS: LEVOTHYROXINE 50MCG TABLET (0.05MG) PO SCH (05:33)
[2022-03-13 05:53] VITALS: BP 145/90
[2022-03-13] MEDS: VITAMIN D 1,000 INTERNATIONAL UNITS TABLET PO SCH (08:25)
[2022-03-13] MEDS: DIVALPROEX 250MG *ER* TAB PO SCH ×2 (08:26→21:20)
[2022-03-13] MEDS: MULTIVITAMINS/MINERALS THERAP 1 TAB PO SCH (08:26)
[2022-03-13] MEDS: LITHIUM CARBONATE 150 MG CAP PO SCH ×2 (08:26→21:20)
[2022-03-13] MEDS: FOLIC ACID 1MG TAB PO SCH (08:27)
[2022-03-13] MEDS: METOPROLOL SUCC (TopROL XL) 50MG **XL** TAB PO SCH (08:27)
[2022-03-13] MEDS: metFORMIN XR 500MG TAB *GLUCOPHAGE XR PO SCH ×2 (08:27→21:21)
[2022-03-13] MEDS: NICOTINE 21MG/24HR 1 EA TRANSDERMAL TD SCH (08:29)
[2022-03-13 17:46] VITALS: BP 157/85
[2022-03-13] MEDS: traZODone 50 MG TAB PO PRN (21:20)
[2022-03-13] MEDS: ARIPiprazole 15 MG TAB (AbiLIFY) PO SCH (21:20)
[2022-03-13] MEDS: ATORVASTATIN 20 MG TAB PO SCH (21:20)
[2022-03-14] MEDS: LEVOTHYROXINE 50MCG TABLET (0.05MG) PO SCH (05:44)
[2022-03-14 06:21] VITALS: BP 165/95
[2022-03-14] MEDS: VITAMIN D 1,000 INTERNATIONAL UNITS TABLET PO SCH (08:19)
[2022-03-14] MEDS: LITHIUM CARBONATE 150 MG CAP PO SCH ×2 (08:19→20:27)
[2022-03-14] MEDS: FOLIC ACID 1MG TAB PO SCH (08:20)
[2022-03-14] MEDS: MULTIVITAMINS/MINERALS THERAP 1 TAB PO SCH (08:20)
[2022-03-14] MEDS: DIVALPROEX 250MG *ER* TAB PO SCH ×2 (08:21→20:26)
[2022-03-14] MEDS: metFORMIN XR 500MG TAB *GLUCOPHAGE XR PO SCH ×2 (08:21→20:27)
[2022-03-14] MEDS: METOPROLOL SUCC (TopROL XL) 50MG **XL** TAB PO SCH (08:23)
[2022-03-14] MEDS: NICOTINE 21MG/24HR 1 EA TRANSDERMAL TD SCH (08:24)
[2022-03-14] MEDS: ACETAMINOPHEN TAB 650MG DOSE (2X325MG) PO PRN ×2 (08:36→14:46)
[2022-03-14] MEDS: DICLOFENAC EPOLAMINE 1.3 % PATCH TOP SCH ×2 (16:07→20:27)
[2022-03-14 18:09] VITALS: BP 143/72
[2022-03-14] MEDS: ATORVASTATIN 20 MG TAB PO SCH (20:26)
[2022-03-14] MEDS: ARIPiprazole 15 MG TAB (AbiLIFY) PO SCH (20:26)
[2022-03-14] MEDS: traZODone 50 MG TAB PO PRN (20:27)
[2022-03-15] MEDS: LEVOTHYROXINE 50MCG TABLET (0.05MG) PO SCH (05:39)
[2022-03-15 06:16] VITALS: BP 149/97
[2022-03-15] MEDS: MULTIVITAMINS/MINERALS THERAP 1 TAB PO SCH (08:11)
[2022-03-15] MEDS: metFORMIN XR 500MG TAB *GLUCOPHAGE XR PO SCH ×2 (08:12→20:24)
[2022-03-15] MEDS: VITAMIN D 1,000 INTERNATIONAL UNITS TABLET PO SCH (08:12)
[2022-03-15] MEDS: LITHIUM CARBONATE 150 MG CAP PO SCH ×2 (08:12→20:25)
[2022-03-15] MEDS: FOLIC ACID 1MG TAB PO SCH (08:12)
[2022-03-15] MEDS: DIVALPROEX 250MG *ER* TAB PO SCH ×2 (08:13→20:24)
[2022-03-15] MEDS: METOPROLOL SUCC (TopROL XL) 50MG **XL** TAB PO SCH (08:13)
[2022-03-15] MEDS: NICOTINE 21MG/24HR 1 EA TRANSDERMAL TD SCH (08:14)
[2022-03-15] MEDS: DICLOFENAC EPOLAMINE 1.3 % PATCH TOP SCH ×2 (08:14→22:34)
[2022-03-15] MEDS: ACETAMINOPHEN TAB 650MG DOSE (2X325MG) PO PRN ×2 (16:06→22:39)
[2022-03-15 18:04] VITALS: BP 160/93
[2022-03-15] MEDS: ATORVASTATIN 20 MG TAB PO SCH (20:25)
[2022-03-15] MEDS: traZODone 50 MG TAB PO PRN (20:25)
[2022-03-15] MEDS: ARIPiprazole 15 MG TAB (AbiLIFY) PO SCH (20:25)
[2022-03-16] MEDS: LEVOTHYROXINE 50MCG TABLET (0.05MG) PO SCH (05:51)
[2022-03-16 06:39] VITALS: BP 150/83
[2022-03-16] MEDS: DICLOFENAC EPOLAMINE 1.3 % PATCH TOP SCH ×2 (08:16→21:00)
[2022-03-16] MEDS: VITAMIN D 1,000 INTERNATIONAL UNITS TABLET PO SCH (08:17)
[2022-03-16] MEDS: MULTIVITAMINS/MINERALS THERAP 1 TAB PO SCH (08:17)
[2022-03-16] MEDS: metFORMIN XR 500MG TAB *GLUCOPHAGE XR PO SCH ×2 (08:17→20:08)
[2022-03-16] MEDS: FOLIC ACID 1MG TAB PO SCH (08:17)
[2022-03-16] MEDS: DIVALPROEX 250MG *ER* TAB PO SCH ×2 (08:18→20:08)
[2022-03-16] MEDS: LITHIUM CARBONATE 150 MG CAP PO SCH ×2 (08:18→20:09)
[2022-03-16] MEDS: METOPROLOL SUCC (TopROL XL) 50MG **XL** TAB PO SCH (08:19)
[2022-03-16] MEDS: NICOTINE 21MG/24HR 1 EA TRANSDERMAL TD SCH (08:19)
[2022-03-16] MEDS: ACETAMINOPHEN TAB 650MG DOSE (2X325MG) PO PRN (11:24)
[2022-03-16 18:00] VITALS: BP 160/96
[2022-03-16] MEDS: ATORVASTATIN 20 MG TAB PO SCH (20:08)
[2022-03-16] MEDS: ARIPiprazole 15 MG TAB (AbiLIFY) PO SCH (20:08)
[2022-03-16] MEDS: traZODone 50 MG TAB PO PRN (20:09)
[2022-03-17] MEDS: LEVOTHYROXINE 50MCG TABLET (0.05MG) PO SCH (05:02)
[2022-03-17 06:21] VITALS: BP 113/81
[2022-03-17] MEDS: NICOTINE 21MG/24HR 1 EA TRANSDERMAL TD SCH (08:22)
[2022-03-17] MEDS: DICLOFENAC EPOLAMINE 1.3 % PATCH TOP SCH ×2 (08:26→20:31)
[2022-03-17] MEDS: MULTIVITAMINS/MINERALS THERAP 1 TAB PO SCH (08:27)
[2022-03-17] MEDS: VITAMIN D 1,000 INTERNATIONAL UNITS TABLET PO SCH (08:27)
[2022-03-17] MEDS: LITHIUM CARBONATE 150 MG CAP PO SCH ×2 (08:27→20:31)
[2022-03-17] MEDS: METOPROLOL SUCC (TopROL XL) 50MG **XL** TAB PO SCH (08:28)
[2022-03-17] MEDS: metFORMIN XR 500MG TAB *GLUCOPHAGE XR PO SCH ×2 (08:28→20:31)
[2022-03-17] MEDS: DIVALPROEX 250MG *ER* TAB PO SCH ×2 (08:28→20:31)
[2022-03-17] MEDS: FOLIC ACID 1MG TAB PO SCH (08:28)
[2022-03-17 18:39] VITALS: BP 135/80
[2022-03-17] MEDS: ATORVASTATIN 20 MG TAB PO SCH (20:30)
[2022-03-17] MEDS: traZODone 50 MG TAB PO PRN (20:31)
[2022-03-17] MEDS: ARIPiprazole 15 MG TAB (AbiLIFY) PO SCH (20:31)
[2022-03-18] MEDS: LEVOTHYROXINE 50MCG TABLET (0.05MG) PO SCH (05:37)
[2022-03-18] MEDS: ACETAMINOPHEN TAB 650MG DOSE (2X325MG) PO PRN (05:37)
[2022-03-18 05:43] VITALS: BP 138/77
[2022-03-18] MEDS: FOLIC ACID 1MG TAB PO SCH (08:07)
[2022-03-18] MEDS: VITAMIN D 1,000 INTERNATIONAL UNITS TABLET PO SCH (08:07)
[2022-03-18] MEDS: METOPROLOL SUCC (TopROL XL) 50MG **XL** TAB PO SCH (08:07)
[2022-03-18] MEDS: MULTIVITAMINS/MINERALS THERAP 1 TAB PO SCH (08:07)
[2022-03-18] MEDS: DIVALPROEX 250MG *ER* TAB PO SCH ×2 (08:07→20:42)
[2022-03-18] MEDS: DICLOFENAC EPOLAMINE 1.3 % PATCH TOP SCH ×2 (08:08→20:41)
[2022-03-18] MEDS: metFORMIN XR 500MG TAB *GLUCOPHAGE XR PO SCH ×2 (08:08→20:41)
[2022-03-18] MEDS: NICOTINE 21MG/24HR 1 EA TRANSDERMAL TD SCH ×2 (08:08→10:56)
[2022-03-18] MEDS: LITHIUM CARBONATE 150 MG CAP PO SCH ×2 (08:08→20:41)
[2022-03-18 16:31] VITALS: BP 133/80
[2022-03-18] MEDS: ARIPiprazole 15 MG TAB (AbiLIFY) PO SCH (20:42)
[2022-03-18] MEDS: ATORVASTATIN 20 MG TAB PO SCH (20:42)
[2022-03-19] MEDS: LEVOTHYROXINE 50MCG TABLET (0.05MG) PO SCH (05:44)
[2022-03-19 06:23] VITALS: BP 152/83
[2022-03-19] MEDS: MULTIVITAMINS/MINERALS THERAP 1 TAB PO SCH (07:48)
[2022-03-19] MEDS: VITAMIN D 1,000 INTERNATIONAL UNITS TABLET PO SCH (07:48)
[2022-03-19] MEDS: FOLIC ACID 1MG TAB PO SCH (07:48)
[2022-03-19] MEDS: metFORMIN XR 500MG TAB *GLUCOPHAGE XR PO SCH ×2 (07:48→20:18)
[2022-03-19] MEDS: LITHIUM CARBONATE 150 MG CAP PO SCH ×2 (07:48→20:18)
[2022-03-19] MEDS: DIVALPROEX 250MG *ER* TAB PO SCH (07:49)
[2022-03-19] MEDS: METOPROLOL SUCC (TopROL XL) 50MG **XL** TAB PO SCH (07:49)
[2022-03-19] MEDS: DICLOFENAC EPOLAMINE 1.3 % PATCH TOP SCH ×2 (08:06→20:56)
[2022-03-19] MEDS: NICOTINE 21MG/24HR 1 EA TRANSDERMAL TD SCH (08:07)
[2022-03-19] MEDS: ACETAMINOPHEN TAB 650MG DOSE (2X325MG) PO PRN (14:13)
[2022-03-19 16:22] VITALS: BP 129/63
[2022-03-19] MEDS: traZODone 50 MG TAB PO PRN (20:18)
[2022-03-19] MEDS: DIVALPROEX 500MG *ER* TAB PO SCH (20:18)
[2022-03-19] MEDS: ARIPiprazole 15 MG TAB (AbiLIFY) PO SCH (20:18)
[2022-03-19] MEDS: ATORVASTATIN 20 MG TAB PO SCH (20:18)
[2022-03-20] MEDS: LEVOTHYROXINE 50MCG TABLET (0.05MG) PO SCH (05:49)
[2022-03-20 06:20] VITALS: BP 131/87
[2022-03-20] MEDS: DICLOFENAC EPOLAMINE 1.3 % PATCH TOP SCH ×2 (08:20→20:21)
[2022-03-20] MEDS: NICOTINE 21MG/24HR 1 EA TRANSDERMAL TD SCH (08:20)
[2022-03-20] MEDS: MULTIVITAMINS/MINERALS THERAP 1 TAB PO SCH (08:21)
[2022-03-20] MEDS: VITAMIN D 1,000 INTERNATIONAL UNITS TABLET PO SCH (08:21)
[2022-03-20] MEDS: metFORMIN XR 500MG TAB *GLUCOPHAGE XR PO SCH ×2 (08:21→20:21)
[2022-03-20] MEDS: FOLIC ACID 1MG TAB PO SCH (08:21)
[2022-03-20] MEDS: DIVALPROEX 500MG *ER* TAB PO SCH ×2 (08:22→20:20)
[2022-03-20] MEDS: METOPROLOL SUCC (TopROL XL) 50MG **XL** TAB PO SCH (08:22)
[2022-03-20] MEDS: LITHIUM CARBONATE 150 MG CAP PO SCH (11:00)
[2022-03-20 16:43] VITALS: BP 129/79
[2022-03-20] MEDS: traZODone 50 MG TAB PO PRN (20:20)
[2022-03-20] MEDS: ARIPiprazole 15 MG TAB (AbiLIFY) PO SCH (20:20)
[2022-03-20] MEDS: LITHIUM CARBONATE 300 MG **CR** TAB PO SCH (20:21)
[2022-03-20] MEDS: ATORVASTATIN 20 MG TAB PO SCH (20:22)
[2022-03-21] MEDS: LEVOTHYROXINE 50MCG TABLET (0.05MG) PO SCH (05:33)
[2022-03-21 06:17] VITALS: BP 152/94
[2022-03-21] MEDS: NICOTINE 21MG/24HR 1 EA TRANSDERMAL TD SCH (08:14)
[2022-03-21] MEDS: DICLOFENAC EPOLAMINE 1.3 % PATCH TOP SCH ×2 (08:14→20:42)
[2022-03-21] MEDS: MULTIVITAMINS/MINERALS THERAP 1 TAB PO SCH (08:15)
[2022-03-21] MEDS: metFORMIN XR 500MG TAB *GLUCOPHAGE XR PO SCH ×2 (08:15→20:41)
[2022-03-21] MEDS: METOPROLOL SUCC (TopROL XL) 50MG **XL** TAB PO SCH (08:15)
[2022-03-21] MEDS: LITHIUM CARBONATE 300 MG **CR** TAB PO SCH ×2 (08:15→20:41)
[2022-03-21] MEDS: DIVALPROEX 500MG *ER* TAB PO SCH ×2 (08:16→20:42)
[2022-03-21] MEDS: FOLIC ACID 1MG TAB PO SCH (08:16)
[2022-03-21] MEDS: VITAMIN D 1,000 INTERNATIONAL UNITS TABLET PO SCH (08:16)
[2022-03-21] MEDS: ACETAMINOPHEN TAB 650MG DOSE (2X325MG) PO PRN (09:15)
[2022-03-21 18:20] VITALS: BP 152/92
[2022-03-21] MEDS: ATORVASTATIN 20 MG TAB PO SCH (20:41)
[2022-03-21] MEDS: ARIPiprazole 15 MG TAB (AbiLIFY) PO SCH (20:41)
[2022-03-21] MEDS: traZODone 50 MG TAB PO PRN (22:25)
[2022-03-22] MEDS: LEVOTHYROXINE 50MCG TABLET (0.05MG) PO SCH (05:27)
[2022-03-22 06:22] VITALS: BP 141/88
[2022-03-22] MEDS: DICLOFENAC EPOLAMINE 1.3 % PATCH TOP SCH ×2 (08:22→20:33)
[2022-03-22] MEDS: metFORMIN XR 500MG TAB *GLUCOPHAGE XR PO SCH ×2 (08:23→20:31)
[2022-03-22] MEDS: DIVALPROEX 500MG *ER* TAB PO SCH ×2 (08:23→20:32)
[2022-03-22] MEDS: VITAMIN D 1,000 INTERNATIONAL UNITS TABLET PO SCH (08:23)
[2022-03-22] MEDS: MULTIVITAMINS/MINERALS THERAP 1 TAB PO SCH (08:23)
[2022-03-22] MEDS: FOLIC ACID 1MG TAB PO SCH (08:23)
[2022-03-22] MEDS: METOPROLOL SUCC (TopROL XL) 50MG **XL** TAB PO SCH (08:23)
[2022-03-22] MEDS: LITHIUM CARBONATE 300 MG **CR** TAB PO SCH ×2 (08:24→20:31)
[2022-03-22] MEDS: NICOTINE 21MG/24HR 1 EA TRANSDERMAL TD SCH (08:24)
[2022-03-22] MEDS: ACETAMINOPHEN TAB 650MG DOSE (2X325MG) PO PRN (11:03)
[2022-03-22 16:39] VITALS: BP 132/73
[2022-03-22] MEDS: ARIPiprazole 15 MG TAB (AbiLIFY) PO SCH (20:31)
[2022-03-22] MEDS: ATORVASTATIN 20 MG TAB PO SCH (20:32)
[2022-03-22] MEDS: traZODone 50 MG TAB PO PRN (20:34)
[2022-03-23] MEDS: LEVOTHYROXINE 50MCG TABLET (0.05MG) PO SCH (05:35)
[2022-03-23 06:24] VITALS: BP 140/86
[2022-03-23] MEDS: DICLOFENAC EPOLAMINE 1.3 % PATCH TOP SCH ×2 (08:14→20:32)
[2022-03-23] MEDS: NICOTINE 21MG/24HR 1 EA TRANSDERMAL TD SCH (08:14)
[2022-03-23] MEDS: VITAMIN D 1,000 INTERNATIONAL UNITS TABLET PO SCH (08:15)
[2022-03-23] MEDS: FOLIC ACID 1MG TAB PO SCH (08:15)
[2022-03-23] MEDS: LITHIUM CARBONATE 300 MG **CR** TAB PO SCH ×2 (08:15→20:33)
[2022-03-23] MEDS: MULTIVITAMINS/MINERALS THERAP 1 TAB PO SCH (08:15)
[2022-03-23] MEDS: DIVALPROEX 500MG *ER* TAB PO SCH ×2 (08:15→20:33)
[2022-03-23] MEDS: metFORMIN XR 500MG TAB *GLUCOPHAGE XR PO SCH ×2 (08:16→20:33)
[2022-03-23] MEDS: METOPROLOL SUCC (TopROL XL) 50MG **XL** TAB PO SCH (08:16)
[2022-03-23 16:19] VITALS: BP 140/78
[2022-03-23] MEDS: ACETAMINOPHEN TAB 650MG DOSE (2X325MG) PO PRN (17:16)
[2022-03-23] MEDS: ATORVASTATIN 20 MG TAB PO SCH (20:33)
[2022-03-23] MEDS: ARIPiprazole 15 MG TAB (AbiLIFY) PO SCH (20:33)
[2022-03-23] MEDS: traZODone 50 MG TAB PO PRN (20:33)
[2022-03-24] MEDS: ACETAMINOPHEN TAB 650MG DOSE (2X325MG) PO PRN ×2 (01:09→08:15)
[2022-03-24] MEDS: LEVOTHYROXINE 50MCG TABLET (0.05MG) PO SCH (05:47)
[2022-03-24 06:33] VITALS: BP 142/82
[2022-03-24] MEDS: DICLOFENAC EPOLAMINE 1.3 % PATCH TOP SCH ×2 (08:14→20:29)
[2022-03-24] MEDS: metFORMIN XR 500MG TAB *GLUCOPHAGE XR PO SCH ×2 (08:15→20:29)
[2022-03-24] MEDS: FOLIC ACID 1MG TAB PO SCH (08:16)
[2022-03-24] MEDS: METOPROLOL SUCC (TopROL XL) 50MG **XL** TAB PO SCH (08:19)
[2022-03-24] MEDS: MULTIVITAMINS/MINERALS THERAP 1 TAB PO SCH (08:19)
[2022-03-24] MEDS: LITHIUM CARBONATE 300 MG **CR** TAB PO SCH ×2 (08:19→20:29)
[2022-03-24] MEDS: VITAMIN D 1,000 INTERNATIONAL UNITS TABLET PO SCH (08:20)
[2022-03-24] MEDS: DIVALPROEX 500MG *ER* TAB PO SCH ×2 (08:20→20:29)
[2022-03-24] MEDS: NICOTINE 21MG/24HR 1 EA TRANSDERMAL TD SCH (08:29)
[2022-03-24 16:27] VITALS: BP 130/73
[2022-03-24] MEDS: traZODone 50 MG TAB PO PRN (20:28)
[2022-03-24] MEDS: ARIPiprazole 15 MG TAB (AbiLIFY) PO SCH (20:29)
[2022-03-24] MEDS: ATORVASTATIN 20 MG TAB PO SCH (20:29)
[2022-03-25] MEDS: LEVOTHYROXINE 50MCG TABLET (0.05MG) PO SCH (05:22)
[2022-03-25 06:18] VITALS: BP 142/74
[2022-03-25] MEDS: metFORMIN XR 500MG TAB *GLUCOPHAGE XR PO SCH ×2 (08:07→20:27)
[2022-03-25] MEDS: VITAMIN D 1,000 INTERNATIONAL UNITS TABLET PO SCH (08:07)
[2022-03-25] MEDS: FOLIC ACID 1MG TAB PO SCH (08:08)
[2022-03-25] MEDS: MULTIVITAMINS/MINERALS THERAP 1 TAB PO SCH (08:08)
[2022-03-25] MEDS: DIVALPROEX 500MG *ER* TAB PO SCH ×2 (08:09→20:28)
[2022-03-25] MEDS: NICOTINE 21MG/24HR 1 EA TRANSDERMAL TD SCH (08:09)
[2022-03-25] MEDS: DICLOFENAC EPOLAMINE 1.3 % PATCH TOP SCH ×2 (08:09→20:28)
[2022-03-25] MEDS: METOPROLOL SUCC (TopROL XL) 50MG **XL** TAB PO SCH (08:10)
[2022-03-25 08:44] LABS: LITHIUM LEVEL 0.38 MEQ/L (0.60-1.20); VALPROIC ACID (DEPAKOTE) 52.2 UG/ML (50.0-100.0)
[2022-03-25] MEDS: LITHIUM CARBONATE 300 MG **CR** TAB PO SCH ×2 (09:24→20:27)
[2022-03-25] MEDS: ACETAMINOPHEN TAB 650MG DOSE (2X325MG) PO PRN ×2 (13:26→20:28)
[2022-03-25 17:23] VITALS: BP 141/88
[2022-03-25] MEDS: traZODone 50 MG TAB PO PRN (20:27)
[2022-03-25] MEDS: ARIPiprazole 15 MG TAB (AbiLIFY) PO SCH (20:27)
[2022-03-25] MEDS: ATORVASTATIN 20 MG TAB PO SCH (20:27)
[2022-03-26] MEDS: LEVOTHYROXINE 50MCG TABLET (0.05MG) PO SCH (05:39)
[2022-03-26 06:22] VITALS: BP 135/96
[2022-03-26] MEDS: MULTIVITAMINS/MINERALS THERAP 1 TAB PO SCH (08:04)
[2022-03-26] MEDS: ACETAMINOPHEN TAB 650MG DOSE (2X325MG) PO PRN (08:06)
[2022-03-26] MEDS: metFORMIN XR 500MG TAB *GLUCOPHAGE XR PO SCH ×2 (08:06→20:08)
[2022-03-26] MEDS: LITHIUM CARBONATE 300 MG **CR** TAB PO SCH ×2 (08:07→20:08)
[2022-03-26] MEDS: FOLIC ACID 1MG TAB PO SCH (08:07)
[2022-03-26] MEDS: VITAMIN D 1,000 INTERNATIONAL UNITS TABLET PO SCH (08:07)
[2022-03-26] MEDS: DIVALPROEX 500MG *ER* TAB PO SCH (08:08)
[2022-03-26] MEDS: NICOTINE 21MG/24HR 1 EA TRANSDERMAL TD SCH (08:08)
[2022-03-26] MEDS: DICLOFENAC EPOLAMINE 1.3 % PATCH TOP SCH ×2 (08:08→20:09)
[2022-03-26] MEDS: METOPROLOL SUCC (TopROL XL) 50MG **XL** TAB PO SCH (08:08)
[2022-03-26] MEDS: OLANZapine ORAL DISINTEGRATING TAB 5MG PO PRN ×2 (11:25→20:09)
[2022-03-26 18:21] VITALS: BP 117/63
[2022-03-26] MEDS: DIVALPROEX 250MG *ER* TAB PO SCH (20:08)
[2022-03-26] MEDS: ATORVASTATIN 20 MG TAB PO SCH (20:09)
[2022-03-26] MEDS: traZODone 50 MG TAB PO PRN (20:09)
[2022-03-26] MEDS: ARIPiprazole 15 MG TAB (AbiLIFY) PO SCH (20:09)
[2022-03-27] MEDS: LEVOTHYROXINE 50MCG TABLET (0.05MG) PO SCH (05:34)
[2022-03-27 06:17] VITALS: BP 140/93
[2022-03-27] MEDS: DICLOFENAC EPOLAMINE 1.3 % PATCH TOP SCH ×2 (08:02→20:51)
[2022-03-27] MEDS: NICOTINE 21MG/24HR 1 EA TRANSDERMAL TD SCH (08:02)
[2022-03-27] MEDS: VITAMIN D 1,000 INTERNATIONAL UNITS TABLET PO SCH (08:03)
[2022-03-27] MEDS: metFORMIN XR 500MG TAB *GLUCOPHAGE XR PO SCH ×2 (08:03→20:52)
[2022-03-27] MEDS: MULTIVITAMINS/MINERALS THERAP 1 TAB PO SCH (08:04)
[2022-03-27] MEDS: DIVALPROEX 250MG *ER* TAB PO SCH ×2 (08:04→20:52)
[2022-03-27] MEDS: METOPROLOL SUCC (TopROL XL) 50MG **XL** TAB PO SCH (08:04)
[2022-03-27] MEDS: FOLIC ACID 1MG TAB PO SCH (08:04)
[2022-03-27] MEDS: LITHIUM CARBONATE 300 MG **CR** TAB PO SCH ×2 (08:04→20:52)
[2022-03-27] MEDS: ACETAMINOPHEN TAB 650MG DOSE (2X325MG) PO PRN (08:31)
[2022-03-27] MEDS: OLANZapine ORAL DISINTEGRATING TAB 5MG PO PRN (09:25)
[2022-03-27] MEDS: OLANZapine 5 MG TAB PO SCH ×2 (14:07→20:52)
[2022-03-27 18:21] VITALS: BP 122/72
[2022-03-27] MEDS: ATORVASTATIN 20 MG TAB PO SCH (20:52)
[2022-03-27] MEDS: traZODone 50 MG TAB PO PRN (20:52)
[2022-03-28] MEDS: LEVOTHYROXINE 50MCG TABLET (0.05MG) PO SCH (05:48)
[2022-03-28 06:33] VITALS: BP 132/76
[2022-03-28] MEDS: DICLOFENAC EPOLAMINE 1.3 % PATCH TOP SCH ×2 (08:17→20:46)
[2022-03-28] MEDS: VITAMIN D 1,000 INTERNATIONAL UNITS TABLET PO SCH (08:17)
[2022-03-28] MEDS: MULTIVITAMINS/MINERALS THERAP 1 TAB PO SCH (08:18)
[2022-03-28] MEDS: FOLIC ACID 1MG TAB PO SCH (08:18)
[2022-03-28] MEDS: OLANZapine 5 MG TAB PO SCH ×2 (08:18→20:46)
[2022-03-28] MEDS: LITHIUM CARBONATE 300 MG **CR** TAB PO SCH ×2 (08:19→20:47)
[2022-03-28] MEDS: METOPROLOL SUCC (TopROL XL) 50MG **XL** TAB PO SCH (08:20)
[2022-03-28] MEDS: NICOTINE 21MG/24HR 1 EA TRANSDERMAL TD SCH (08:20)
[2022-03-28] MEDS: metFORMIN XR 500MG TAB *GLUCOPHAGE XR PO SCH ×2 (08:20→20:47)
[2022-03-28] MEDS: DIVALPROEX 250MG *ER* TAB PO SCH ×2 (08:21→20:47)
[2022-03-28] MEDS: OLANZapine ORAL DISINTEGRATING TAB 5MG PO PRN (11:00)
[2022-03-28 19:29] VITALS: BP 153/81
[2022-03-28] MEDS: traZODone 50 MG TAB PO PRN (20:46)
[2022-03-28] MEDS: ATORVASTATIN 20 MG TAB PO SCH (20:46)
[2022-03-29] MEDS: LEVOTHYROXINE 50MCG TABLET (0.05MG) PO SCH (05:55)
[2022-03-29 06:21] VITALS: BP 143/76
[2022-03-29] MEDS: DICLOFENAC EPOLAMINE 1.3 % PATCH TOP SCH ×2 (08:06→20:26)
[2022-03-29] MEDS: metFORMIN XR 500MG TAB *GLUCOPHAGE XR PO SCH ×2 (08:06→20:25)
[2022-03-29] MEDS: NICOTINE 21MG/24HR 1 EA TRANSDERMAL TD SCH (08:06)
[2022-03-29] MEDS: LITHIUM CARBONATE 300 MG **CR** TAB PO SCH ×2 (08:07→20:25)
[2022-03-29] MEDS: MULTIVITAMINS/MINERALS THERAP 1 TAB PO SCH (08:07)
[2022-03-29] MEDS: VITAMIN D 1,000 INTERNATIONAL UNITS TABLET PO SCH (08:07)
[2022-03-29] MEDS: METOPROLOL SUCC (TopROL XL) 50MG **XL** TAB PO SCH (08:07)
[2022-03-29] MEDS: OLANZapine 5 MG TAB PO SCH ×2 (08:07→20:26)
[2022-03-29] MEDS: FOLIC ACID 1MG TAB PO SCH (08:08)
[2022-03-29] MEDS: DIVALPROEX 250MG *ER* TAB PO SCH ×2 (08:08→20:25)
[2022-03-29] MEDS: OLANZapine ORAL DISINTEGRATING TAB 5MG PO PRN ×2 (09:49→15:33)
[2022-03-29 18:36] VITALS: BP 158/80
[2022-03-29] MEDS: PILL CUTTER 1 EACH XX PRN (20:24)
[2022-03-29] MEDS: traZODone 50 MG TAB PO PRN (20:26)
[2022-03-29] MEDS: ATORVASTATIN 20 MG TAB PO SCH (20:26)
[2022-03-29] MEDS: ENOXAPARIN 40MG/0.4ML SYRINGE (J1650 PER 10MG) SC SCH (21:09)
[2022-03-30] MEDS: LEVOTHYROXINE 50MCG TABLET (0.05MG) PO SCH (05:39)
[2022-03-30 06:11] VITALS: BP 122/71
[2022-03-30] MEDS: DICLOFENAC EPOLAMINE 1.3 % PATCH TOP SCH ×2 (08:06→20:18)
[2022-03-30] MEDS: METOPROLOL SUCC (TopROL XL) 50MG **XL** TAB PO SCH (08:07)
[2022-03-30] MEDS: VITAMIN D 1,000 INTERNATIONAL UNITS TABLET PO SCH (08:07)
[2022-03-30] MEDS: metFORMIN XR 500MG TAB *GLUCOPHAGE XR PO SCH ×2 (08:08→20:19)
[2022-03-30] MEDS: DIVALPROEX 250MG *ER* TAB PO SCH ×2 (08:08→20:19)
[2022-03-30] MEDS: MULTIVITAMINS/MINERALS THERAP 1 TAB PO SCH (08:08)
[2022-03-30] MEDS: FOLIC ACID 1MG TAB PO SCH (08:08)
[2022-03-30] MEDS: NICOTINE 21MG/24HR 1 EA TRANSDERMAL TD SCH (08:09)
[2022-03-30] MEDS: OLANZapine 5 MG TAB PO SCH ×2 (08:09→20:20)
[2022-03-30] MEDS: PILL CUTTER 1 EACH XX PRN ×2 (08:10→20:19)
[2022-03-30] MEDS: LITHIUM CARBONATE 300 MG **CR** TAB PO SCH ×2 (08:41→20:19)
[2022-03-30 18:22] VITALS: BP 136/77
[2022-03-30] MEDS: traZODone 50 MG TAB PO PRN (20:19)
[2022-03-30] MEDS: ATORVASTATIN 20 MG TAB PO SCH (20:20)
[2022-03-30] MEDS: ENOXAPARIN 40MG/0.4ML SYRINGE (J1650 PER 10MG) SC SCH (20:23)
[2022-03-30] MEDS: OLANZapine ORAL DISINTEGRATING TAB 5MG PO PRN (21:21)
[2022-03-31] MEDS: LEVOTHYROXINE 50MCG TABLET (0.05MG) PO SCH (05:28)
[2022-03-31 06:12] VITALS: BP 122/89
[2022-03-31] MEDS: NICOTINE 21MG/24HR 1 EA TRANSDERMAL TD SCH (08:12)
[2022-03-31] MEDS: DICLOFENAC EPOLAMINE 1.3 % PATCH TOP SCH ×2 (08:13→20:24)
[2022-03-31] MEDS: MULTIVITAMINS/MINERALS THERAP 1 TAB PO SCH (08:14)
[2022-03-31] MEDS: VITAMIN D 1,000 INTERNATIONAL UNITS TABLET PO SCH (08:14)
[2022-03-31] MEDS: METOPROLOL SUCC (TopROL XL) 50MG **XL** TAB PO SCH (08:14)
[2022-03-31] MEDS: FOLIC ACID 1MG TAB PO SCH (08:14)
[2022-03-31] MEDS: PILL CUTTER 1 EACH XX PRN ×2 (08:15→20:23)
[2022-03-31] MEDS: LITHIUM CARBONATE 300 MG **CR** TAB PO SCH ×2 (08:15→20:23)
[2022-03-31] MEDS: metFORMIN XR 500MG TAB *GLUCOPHAGE XR PO SCH ×2 (08:15→20:23)
[2022-03-31] MEDS: DIVALPROEX 250MG *ER* TAB PO SCH ×2 (08:15→20:23)
[2022-03-31] MEDS: OLANZapine 5 MG TAB PO SCH ×2 (08:16→20:23)
[2022-03-31 18:25] VITALS: BP 120/73
[2022-03-31] MEDS: ATORVASTATIN 20 MG TAB PO SCH (20:23)
[2022-03-31] MEDS: ENOXAPARIN 40MG/0.4ML SYRINGE (J1650 PER 10MG) SC SCH (20:24)
[2022-03-31] MEDS: traZODone 50 MG TAB PO PRN (20:41)
[2022-04-01] MEDS: LEVOTHYROXINE 50MCG TABLET (0.05MG) PO SCH (05:37)
[2022-04-01 06:17] VITALS: BP 141/92
[2022-04-01 07:15] LABS: HEMATOCRIT 43.5 % (42.0-52.0); HEMOGLOBIN 15.2 g/dl (13.5-17.5); MEAN CORPUSCULAR HEMOGLOBIN 32.4 pg (27.0-33.0); MEAN CORPUSCULAR HGB CONC 34.9 g/dl (32.0-36.5); MEAN CORPUSCULAR VOLUME 92.8 fl (80.0-96.0); PLATELET COUNT, AUTOMATED 192 10^3/uL (150-450); RED BLOOD COUNT 4.69 10^6/uL (4.30-6.10); WHITE BLOOD COUNT 9.3 10^3/uL (4.0-10.0)
[2022-04-01] MEDS: DICLOFENAC EPOLAMINE 1.3 % PATCH TOP SCH ×2 (08:58→20:45)
[2022-04-01] MEDS: PILL CUTTER 1 EACH XX PRN (08:58)
[2022-04-01] MEDS: OLANZapine 5 MG TAB PO SCH ×2 (08:59→20:46)
[2022-04-01] MEDS: NICOTINE 21MG/24HR 1 EA TRANSDERMAL TD SCH (08:59)
[2022-04-01] MEDS: VITAMIN D 1,000 INTERNATIONAL UNITS TABLET PO SCH (09:01)
[2022-04-01] MEDS: MULTIVITAMINS/MINERALS THERAP 1 TAB PO SCH (09:01)
[2022-04-01] MEDS: FOLIC ACID 1MG TAB PO SCH (09:01)
[2022-04-01] MEDS: METOPROLOL SUCC (TopROL XL) 50MG **XL** TAB PO SCH (09:01)
[2022-04-01] MEDS: DIVALPROEX 250MG *ER* TAB PO SCH ×2 (09:02→20:46)
[2022-04-01] MEDS: LITHIUM CARBONATE 300 MG **CR** TAB PO SCH ×2 (09:02→20:46)
[2022-04-01] MEDS: metFORMIN XR 500MG TAB *GLUCOPHAGE XR PO SCH ×2 (09:52→20:46)
[2022-04-01 16:33] VITALS: BP 124/75
[2022-04-01] MEDS: traZODone 50 MG TAB PO PRN (20:46)
[2022-04-01] MEDS: ATORVASTATIN 20 MG TAB PO SCH (20:46)
[2022-04-01] MEDS: ENOXAPARIN 40MG/0.4ML SYRINGE (J1650 PER 10MG) SC SCH (20:48)
[2022-04-02] MEDS: LEVOTHYROXINE 50MCG TABLET (0.05MG) PO SCH (06:15)
[2022-04-02 06:39] VITALS: BP 144/55
[2022-04-02 08:47] VITALS: BP 138/78
[2022-04-02] MEDS: METOPROLOL SUCC (TopROL XL) 50MG **XL** TAB PO SCH (08:47)
[2022-04-02] MEDS: PILL CUTTER 1 EACH XX PRN (08:47)
[2022-04-02] MEDS: OLANZapine 5 MG TAB PO SCH (08:48)
[2022-04-02] MEDS: DICLOFENAC EPOLAMINE 1.3 % PATCH TOP SCH (08:48)
[2022-04-02] MEDS: DIVALPROEX 250MG *ER* TAB PO SCH (08:49)
[2022-04-02] MEDS: NICOTINE 21MG/24HR 1 EA TRANSDERMAL TD SCH (08:49)
[2022-04-02] MEDS: VITAMIN D 1,000 INTERNATIONAL UNITS TABLET PO SCH (08:49)
[2022-04-02] MEDS: metFORMIN XR 500MG TAB *GLUCOPHAGE XR PO SCH (08:49)
[2022-04-02] MEDS: LITHIUM CARBONATE 300 MG **CR** TAB PO SCH (08:50)
[2022-04-02] MEDS: FOLIC ACID 1MG TAB PO SCH (08:50)
[2022-04-02] MEDS: MULTIVITAMINS/MINERALS THERAP 1 TAB PO SCH (08:51)
[2022-04-02] MEDS ORDERED: NICO21PAT TD (09:33)
[2022-04-02] MEDS ORDERED: DEPA500T2 PO ×2 (09:33→10:51)
[2022-04-02] MEDS ORDERED: OLAN1TAB16 PO (09:33)
[2022-04-02] MEDS ORDERED: TRAZ-252 PO (09:33)
[2022-04-02] MEDS ORDERED: DEPA250T2 PO ×2 (09:33→10:51)
[2022-04-02] MEDS ORDERED: DICL1PAT6 TOP (09:33)
[2022-04-02] MEDS ORDERED: LITH1TAB PO (09:33)
[2022-04-02] MEDS ORDERED: ABIL1INJ2 IM (09:34)
== END 2022-04-02 15:00 | disposition home or self-care (01) | DRG 753 ==
LOC: M ED 19:06 → M ED INP 03-05 21:46 → M PSY 03-05 22:54
PROVIDERS: ADMIT Student in an Organized Health Care Education/Training Program; ATTEND Student in an Organized Health Care Education/Training Program
DX: F31.2 Bipolar disorder, current episode manic severe with psychotic features (principal); G93.40 Encephalopathy, unspecified; E11.9 Type 2 diabetes mellitus without complications; I10 Essential (primary) hypertension; E78.5 Hyperlipidemia, unspecified; D72.829 Elevated white blood cell count, unspecified; E03.9 Hypothyroidism, unspecified; F10.20 Alcohol dependence, uncomplicated; F17.200 Nicotine dependence, unspecified, uncomplicated; Z79.899 Other long term (current) drug therapy

== ENCOUNTER 2022-04-10 14:38 | Outpatient (CLI) | payer OTHER ==
[~2022-04-10] VITALS: Ht 167.6 cm; Wt 90.9 kg
[~2022-04-10 14:38] MED LIST changes: +ABIL1INJ2 IM; +ATOR1TAB21 PO; +D 50CAP2 PO; +DEPA500T2 PO; +DICL1PAT6 TOP; +LITH1TAB PO; +METF-838 PO; +NICO21PAT TD; +OLAN1TAB16 PO; +SYNT50TA PO; +TRAZ-252 PO; +ZYPR10TA PO
[2022-04-10 14:52] VITALS: BP 141/101
[2022-04-10] MEDS ORDERED: ARIPiprazole MONOHYDRATE 400 MG INJ (ABILIFY) PT CHG ONE IM (15:30)
[2022-04-10 15:50] VITALS: BP 143/96
== END 2022-04-10 15:50 ==
LOC: M INFU 14:38
PROVIDERS: ATTEND Student in an Organized Health Care Education/Training Program
DX: F29 Unspecified psychosis not due to a substance or known physiological condition (principal)

== ENCOUNTER 2022-11-27 11:04 | Inpatient (IN) | payer OTHER ==
[~2022-11-27] VITALS: Ht 167.6 cm; Wt 87.3 kg
[2022-11-27] MEDS ORDERED: HALOPERIDOL 5MG/ML 1ML VIAL IM ONE (12:15)
[2022-11-27] MEDS ORDERED: MIDAZOLAM INJ 2MG/2ML VIAL IM ONE (12:15)
[2022-11-27 12:59] LABS: HEMATOCRIT 42.3 % (42.0-52.0); HEMOGLOBIN 14.9 g/dl (13.5-17.5); MEAN CORPUSCULAR HEMOGLOBIN 31.9 pg (27.0-33.0); MEAN CORPUSCULAR HGB CONC 35.2 g/dl (32.0-36.5); MEAN CORPUSCULAR VOLUME 90.6 fl (80.0-96.0); PLATELET COUNT, AUTOMATED 238 10^3/uL (150-450); RED BLOOD COUNT 4.67 10^6/uL (4.30-6.10); WHITE BLOOD COUNT 12.7 10^3/uL (4.0-10.0)
[2022-11-27 13:22] LABS: ETHYL ALCOHOL (ETHANOL) < 0.003 % (0.000-0.010); VALPROIC ACID (DEPAKOTE) < 3.0 UG/ML (50.0-100.0)
[2022-11-27 13:23] LABS: ACETAMINOPHEN LEVEL < 2.0 UG/ML (10.0-20.0); ALBUMIN 4.5 G/DL (3.2-5.2); ALKALINE PHOSPHATASE 51 U/L (46-116); ALT/SGPT 54 U/L (7.0-40); AST/SGOT 77 U/L (<34); BILIRUBIN,DIRECT 0.4 MG/DL (<0.4); BILIRUBIN,TOTAL 1.2 MG/DL (0.3-1.2); BLOOD UREA NITROGEN 13 MG/DL (9-23); CALCIUM LEVEL 9.5 MG/DL (8.5-10.1); CARBON DIOXIDE LEVEL 22 MMOL/L (20-31); CHLORIDE LEVEL 107 MMOL/L (98-107); CREATININE FOR GFR 0.85 MG/DL (0.70-1.30); GLOMERULAR FILTRATION RATE > 60.0 (>60); GLUCOSE, FASTING 136 MG/DL (60-100); POTASSIUM SERUM 3.8 MMOL/L (3.5-5.1); SALICYLATE LEVEL < 3.0 MG/DL (<30); SODIUM LEVEL 140 MMOL/L (136-145)
[2022-11-27 13:25] LABS: LITHIUM LEVEL < 0.10 MMOL/L (1.0-1.20); THYROID STIMULATING HORMONE 0.867 uIU/ML (0.55-4.78)
[2022-11-27] MEDS ORDERED: MED REC CURRENTLY UNOBTAINABLE XX SCH (14:25)
[2022-11-27 16:40] LABS: AMPHETAMINES LEVEL URINE NEGATIVE (NEGATIVE); BARBITURATES URINE NEGATIVE (NEGATIVE); CANNABINOIDS URINE NEGATIVE (NEGATIVE); COCAINE METABOLITE URINE NEGATIVE (NEGATIVE); METHADONE URINE NEGATIVE (NEGATIVE); OPIATES URINE NEGATIVE (NEGATIVE); PHENCYCLIDINE URINE NEGATIVE (NEGATIVE)
[2022-11-27 16:41] LABS: BENZODIAZEPINES URINE POSITIVE (NEGATIVE)
[2022-11-27] MEDS ORDERED: LORazepam 1 MG TAB PO STA (18:05)
[2022-11-27] MEDS ORDERED: OLANZapine ORAL DISINTEGRATING TAB 5MG PO PRN (22:50)
[2022-11-27] MEDS ORDERED: MOM 30ML SUSPENSION UDC PO PRN (22:50)
[2022-11-27] MEDS ORDERED: LORazepam 2 MG TAB PO PRN (22:50)
[2022-11-27] MEDS ORDERED: MAALOX 30 ML SUSP *UDC PO PRN (22:50)
[2022-11-28 06:23] VITALS: BP 132/79; TEMP 97; O2SAT 98
[2022-11-28] MEDS ORDERED: LITHIUM CARBONATE 150 MG CAP PO SCH ×2 (11:30→11:50)
[2022-11-28] MEDS ORDERED: OLANZapine 5 MG TAB PO SCH (11:50)
[2022-11-28] MEDS ORDERED: ABIL1INJ2 IM (13:46)
[2022-11-28] MEDS ORDERED: HOME MED LIST COMPLETE! XX SCH (13:50)
[2022-11-28] MEDS: DIVALPROEX 250MG *ER* TAB PO SCH ×2 (14:00→20:05)
[2022-11-28 18:35] VITALS: BP 150/89; TEMP 97.7; O2SAT 100
[2022-11-28] MEDS: traZODone 50 MG TAB PO PRN (20:05)
[2022-11-28] MEDS: THIAMINE 100 MG TAB PO SCH ×4 (21:00→22:23)
[2022-11-29] MEDS: ACETAMINOPHEN TAB 650MG DOSE (2X325MG) PO PRN (03:43)
[2022-11-29 06:04] VITALS: BP 128/73; TEMP 97.2; O2SAT 98
[2022-11-29 06:32] LABS: CHOLESTEROL RISK RATIO 2.91 (<5); HDL CHOLESTEROL 45.9 MG/DL (>40); LDL CHOLESTEROL 70.9 MG/DL (<100); NON-HDL-C 88.1 MG/DL
[2022-11-29] MEDS: FOLIC ACID 1MG TAB PO SCH (08:27)
[2022-11-29] MEDS: MULTIVITAMINS/MINERALS THERAP 1 TAB PO SCH (08:27)
[2022-11-29] MEDS: DIVALPROEX 250MG *ER* TAB PO SCH ×2 (08:27→20:02)
[2022-11-29] MEDS: THIAMINE 100 MG TAB PO SCH ×2 (08:28→20:02)
[2022-11-29] MEDS: NICOTINE 7 MG/24 HR TRANSDERMAL TD PRN (15:34)
[2022-11-29 17:35] VITALS: BP 147/82; TEMP 97.9; O2SAT 96
[2022-11-29] MEDS: traZODone 50 MG TAB PO PRN (20:59)
[2022-11-30 06:45] VITALS: BP 158/93; TEMP 96.5; O2SAT 98
[2022-11-30] MEDS: THIAMINE 100 MG TAB PO SCH ×2 (08:35→20:15)
[2022-11-30] MEDS: FOLIC ACID 1MG TAB PO SCH (08:35)
[2022-11-30] MEDS: MULTIVITAMINS/MINERALS THERAP 1 TAB PO SCH (08:35)
[2022-11-30] MEDS: DIVALPROEX 250MG *ER* TAB PO SCH ×2 (08:35→20:15)
[2022-11-30] MEDS: ACETAMINOPHEN TAB 650MG DOSE (2X325MG) PO PRN ×2 (08:39→18:20)
[2022-11-30] MEDS: NICOTINE 7 MG/24 HR TRANSDERMAL TD PRN (08:41)
[2022-11-30] MEDS: ANALGESIC BALM CRM 3OZ TOP SCH ×2 (12:10→20:16)
[2022-11-30 16:47] VITALS: BP 134/82; TEMP 96.7; O2SAT 98
[2022-11-30] MEDS: traZODone 50 MG TAB PO PRN (20:30)
[2022-12-01] MEDS: ACETAMINOPHEN TAB 650MG DOSE (2X325MG) PO PRN ×4 (01:10→23:59)
[2022-12-01 06:47] VITALS: BP 147/86; TEMP 97.3; O2SAT 96
[2022-12-01] MEDS: ANALGESIC BALM CRM 3OZ TOP SCH ×2 (08:16→20:05)
[2022-12-01] MEDS: MULTIVITAMINS/MINERALS THERAP 1 TAB PO SCH (08:16)
[2022-12-01] MEDS: DIVALPROEX 250MG *ER* TAB PO SCH ×2 (08:17→20:05)
[2022-12-01] MEDS: THIAMINE 100 MG TAB PO SCH ×2 (08:17→20:05)
[2022-12-01] MEDS: FOLIC ACID 1MG TAB PO SCH (08:17)
[2022-12-01] MEDS: NICOTINE 7 MG/24 HR TRANSDERMAL TD PRN (08:18)
[2022-12-01 18:16] VITALS: BP_SYST 115; BP_SYST 151; BP_DIAS 90; TEMP 97.3; O2SAT 98
[2022-12-01] MEDS: traZODone 50 MG TAB PO PRN (20:05)
[2022-12-02 06:57] VITALS: BP 143/76; TEMP 97.6; O2SAT 99
[2022-12-02] MEDS: ANALGESIC BALM CRM 3OZ TOP SCH ×2 (07:48→20:03)
[2022-12-02] MEDS: THIAMINE 100 MG TAB PO SCH (07:49)
[2022-12-02] MEDS: FOLIC ACID 1MG TAB PO SCH (07:49)
[2022-12-02] MEDS: DIVALPROEX 250MG *ER* TAB PO SCH ×2 (07:49→20:02)
[2022-12-02] MEDS: MULTIVITAMINS/MINERALS THERAP 1 TAB PO SCH (07:49)
[2022-12-02] MEDS: NICOTINE 7 MG/24 HR TRANSDERMAL TD PRN (07:51)
[2022-12-02] MEDS: ACETAMINOPHEN TAB 650MG DOSE (2X325MG) PO PRN ×2 (09:27→16:42)
[2022-12-02] MEDS ORDERED: BENZTROPINE 1 MG TAB PO PRN (10:40)
[2022-12-02] MEDS ORDERED: HALOPERIDOL DECANOATE 100 MG/ML 1ML VIAL IM ONE (11:00)
[2022-12-02 18:33] VITALS: BP 150/71; TEMP 96.2; O2SAT 100
[2022-12-02] MEDS: traZODone 50 MG TAB PO PRN (20:02)
[2022-12-03] MEDS: ACETAMINOPHEN TAB 650MG DOSE (2X325MG) PO PRN ×3 (04:13→20:50)
[2022-12-03 06:21] VITALS: BP 150/100; TEMP 97.4; O2SAT 99
[2022-12-03] MEDS: FOLIC ACID 1MG TAB PO SCH (08:11)
[2022-12-03] MEDS: DIVALPROEX 250MG *ER* TAB PO SCH ×2 (08:11→20:50)
[2022-12-03] MEDS: ANALGESIC BALM CRM 3OZ TOP SCH ×2 (08:11→20:51)
[2022-12-03] MEDS: MULTIVITAMINS/MINERALS THERAP 1 TAB PO SCH (08:11)
[2022-12-03] MEDS: NICOTINE 7 MG/24 HR TRANSDERMAL TD PRN (08:59)
[2022-12-03 18:56] VITALS: BP 133/87; TEMP 97.5
[2022-12-03] MEDS: DIVALPROEX 500MG *ER* TAB PO SCH (20:50)
[2022-12-03] MEDS: traZODone 50 MG TAB PO PRN (20:51)
[2022-12-04] MEDS: ACETAMINOPHEN TAB 650MG DOSE (2X325MG) PO PRN (06:05)
[2022-12-04 06:37] VITALS: BP 142/81; TEMP 96.9; O2SAT 98
[2022-12-04] MEDS: ANALGESIC BALM CRM 3OZ TOP SCH ×2 (09:00→20:24)
[2022-12-04] MEDS: MULTIVITAMINS/MINERALS THERAP 1 TAB PO SCH (10:33)
[2022-12-04] MEDS: DIVALPROEX 250MG *ER* TAB PO SCH ×2 (10:36→20:23)
[2022-12-04] MEDS: NICOTINE 7 MG/24 HR TRANSDERMAL TD PRN (10:36)
[2022-12-04] MEDS: FOLIC ACID 1MG TAB PO SCH (10:36)
[2022-12-04] MEDS ORDERED: NICOTINE 21MG/24HR 1 EA TRANSDERMAL TD PRN (14:40)
[2022-12-04] MEDS: BENZTROPINE 1 MG TAB PO SCH ×2 (14:54→20:23)
[2022-12-04 18:49] VITALS: BP 133/88; TEMP 98.3; O2SAT 94
[2022-12-04] MEDS: DIVALPROEX 500MG *ER* TAB PO SCH (20:23)
[2022-12-04] MEDS: traZODone 50 MG TAB PO PRN (20:23)
[2022-12-05 06:47] VITALS: BP 150/89; TEMP 97.2; O2SAT 99
[2022-12-05] MEDS: MULTIVITAMINS/MINERALS THERAP 1 TAB PO SCH (08:11)
[2022-12-05] MEDS: DIVALPROEX 250MG *ER* TAB PO SCH ×2 (08:11→20:17)
[2022-12-05] MEDS: FOLIC ACID 1MG TAB PO SCH (08:11)
[2022-12-05] MEDS: BENZTROPINE 1 MG TAB PO SCH ×2 (08:11→20:18)
[2022-12-05] MEDS: ANALGESIC BALM CRM 3OZ TOP SCH ×2 (08:13→20:18)
[2022-12-05] MEDS: ACETAMINOPHEN TAB 650MG DOSE (2X325MG) PO PRN ×2 (15:59→22:45)
[2022-12-05 18:26] VITALS: BP 145/92; TEMP 98
[2022-12-05] MEDS: traZODone 50 MG TAB PO PRN (20:17)
[2022-12-05] MEDS: DIVALPROEX 500MG *ER* TAB PO SCH (20:18)
[2022-12-06 06:41] VITALS: BP 141/87; TEMP 96.9; O2SAT 96
[2022-12-06] MEDS: MULTIVITAMINS/MINERALS THERAP 1 TAB PO SCH (08:04)
[2022-12-06] MEDS: FOLIC ACID 1MG TAB PO SCH (08:04)
[2022-12-06] MEDS: DIVALPROEX 250MG *ER* TAB PO SCH (08:04)
[2022-12-06] MEDS: BENZTROPINE 1 MG TAB PO SCH (08:04)
[2022-12-06] MEDS: ACETAMINOPHEN TAB 650MG DOSE (2X325MG) PO PRN (08:05)
[2022-12-06] MEDS: ANALGESIC BALM CRM 3OZ TOP SCH (08:06)
[2022-12-06] MEDS ORDERED: TRAZ-252 PO (08:56)
[2022-12-06] MEDS ORDERED: HALD100I2 IM (08:56)
[2022-12-06] MEDS ORDERED: DEPA250T2 PO (08:56)
[2022-12-06] MEDS ORDERED: DEPA500T2 PO (08:56)
[2022-12-06] MEDS ORDERED: HALO1TAB19 PO (08:56)
[2022-12-06] MEDS ORDERED: BENZ1TAB5 PO (08:56)
[2022-12-06] MEDS ORDERED: NICO21PAT TD (08:56)
== END 2022-12-06 12:26 | disposition home or self-care (01) | DRG 753 ==
LOC: M ED 11:04 → M ED INP 22:46 → M PSY 23:11 → M ED 23:15
PROVIDERS: ADMIT Student in an Organized Health Care Education/Training Program; ATTEND Student in an Organized Health Care Education/Training Program
DX: F31.2 Bipolar disorder, current episode manic severe with psychotic features (principal); F10.20 Alcohol dependence, uncomplicated; F17.200 Nicotine dependence, unspecified, uncomplicated; Z91.128 Patient's intentional underdosing of medication regimen for other reason; E11.9 Type 2 diabetes mellitus without complications; I10 Essential (primary) hypertension; E78.5 Hyperlipidemia, unspecified; F17.220 Nicotine dependence, chewing tobacco, uncomplicated; D72.829 Elevated white blood cell count, unspecified; E03.9 Hypothyroidism, unspecified; Z79.899 Other long term (current) drug therapy